=== PATIENT | male | born 1930 | race Caucasian/White ===

== ENCOUNTER 2016-09-17 21:02 | Emergency (ER) | payer MEDICARE, BC ==
[2016-09-17 22:02] LABS: Hematocrit 32 % (42-52); Hemoglobin 10.4 g/dl (14.0-18.0); Mean Corpuscular HGB Conc 33 g/dl (31-36); Mean Corpuscular Hemoglobin 29 pg (27-31); Mean Corpuscular Volume 88 fL (80-94); Mean Platelet Volume 9 um3 (7.4-10.4); Red Blood Count 3.64 10^6/ul (4.0-5.4); Red Cell Distribution Width 15 % (10.5-15); White Blood Count 10.8 10^3/ul (3.5-10.8)
[2016-09-17 22:17] LABS: Albumin 3.4 g/dL (3.2-5.2); BUN/Creatinine Ratio 16.7 (8-20); Calcium 8.8 mg/dL (8.6-10.3); EGFR African American 30.5 (>60); EGFR Non-African American 23.7 (>60); Globulin 2.7 g/dL (2-4); Potassium 3.9 mmol/L (3.5-5.0); Total Bilirubin 0.4 mg/dL (0.2-1.0); Total Protein 6.1 g/dL (6.4-8.9)
--- NOTE | 2016-09-17 22:23 | ED ---
Marleny Degroot Alok, scribed for Nahum Mustafa MD on 09/17/16 at 2150 . Complex/Multi-Sys Presentation - HPI Summary HPI Summary: 85 y/o male presents to the ED after accidentally ingesting six 50 mg tablets of hydralazine at once earlier today. Pt states that he normally takes hydralazine TID but his pills were disorganized at time of ingestion. Pt currently has no medical complaints at this time. - History Of Current Complaint Chief Complaint: EDOverdose Time Seen by Provider: 09/17/16 21:34 Hx Obtained From: Patient Onset/Duration: Gradual Onset, Lasting Hours, Still Present Timing: Constant Severity Currently: Moderate Severity Initially: Moderate - Allergies/Home Medications Allergies/Adverse Reactions: Allergies Allergy/AdvReac Type Severity Reaction Status Date / Time No Known Allergies Allergy Verified 09/17/16 21:44 PMH/Surg Hx/FS Hx/Imm Hx Endocrine/Hematology History: Reports: Hx Diabetes - type 2 Cardiovascular History: Reports: Hx Coronary Artery Disease, Hx Hypertension Respiratory History: Reports: Hx Chronic Obstructive Pulmonary Disease (COPD) GI History: Reports: Hx Gastroesophageal Reflux Disease Sensory History: Reports: Hx Contacts or Glasses - for reading, has glass here. Denies: Hx Hearing Aid Opthamlomology History: Reports: Hx Contacts or Glasses - for reading, has glass here. - Surgical History Surgery Procedure, Year, and Place: Appy, Hx Anesthesia Reactions: No Infectious Disease History: No Infectious Disease History: Denies: Traveled Outside the [place] in Last 30 Days - Family History Known Family History: Negative: Cardiac Disease, Diabetes - Social History Occupation: Retired Lives: With Family - Alcohol Use: unknown Substance Use Type: Reports: None Smoking Status (MU): Never Smoked Tobacco Review of Systems Negative: Fever Psychological: Normal All Other Systems Reviewed And Are Negative: Yes Physical Exam Triage Information Reviewed: Yes Vital Signs On Initial Exam: Initial Vitals Temp Pulse Resp BP Pulse Ox 96.8 F 73 18 153/58 96 09/17/16 21:06 09/17/16 21:06 09/17/16 21:06 09/17/16 21:06 09/17/16 21:06 Vital Signs Reviewed: Yes Appearance: Positive: Well-Appearing, No Pain Distress Skin: Positive: Warm Head/Face: Positive: Normal Head/Face Inspection Eyes: Positive: EOMI, JAY ENT: Positive: Hearing grossly normal Neck: Positive: Supple Respiratory/Lung Sounds: Positive: Clear to Auscultation, Breath Sounds Present Cardiovascular: Positive: RRR Abdomen Description: Positive: Nontender, Soft Musculoskeletal: Positive: Strength/ROM Intact Neurological: Positive: Sensory/Motor Intact, Alert, Oriented to Person Place, Time Psychiatric: Positive: Affect/Mood Appropriate Diagnostics - Vital Signs Vital Signs Temp Pulse Resp BP Pulse Ox 09/17/16 21:40 98.0 F 61 16 175/62 94 09/17/16 21:06 96.8 F 73 18 153/58 96 - Laboratory Lab Results: Lab Results 09/17/16 09/17/16 Range/Units 21:51 21:51 WBC 10.8 (3.5-10.8) 10^3/ul RBC 3.64 L (4.0-5.4) 10^6/ul Hgb 10.4 L (14.0-18.0) g/dl Hct 32 L (42-52) % MCV 88 (80-94) fL MCH 29 (27-31) pg MCHC 33 (31-36) g/dl RDW 15 (10.5-15) % Plt Count 217 (150-450) 10^3/ul MPV 9 (7.4-10.4) um3 Neut % (Auto) 68.3 (38-83) % Lymph % (Auto) 19.0 L (25-47) % Stephens % (Auto) 9.4 H (1-9) % Eos % (Auto) 2.7 (0-6) % Baso % (Auto) 0.6 (0-2) % Absolute Neuts (auto) 7.4 (1.5-7.7) 10^3/ul Absolute Lymphs (auto) 2.1 (1.0-4.8) 10^3/ul Absolute Monos (auto) 1.0 H (0-0.8) 10^3/ul Absolute Eos (auto) 0.3 (0-0.6) 10^3/ul Absolute Basos (auto) 0.1 (0-0.2) 10^3/ul Absolute Nucleated RBC 0 10^3/ul Nucleated RBC % 0 Sodium 137 (133-145) mmol/L Potassium 3.9 (3.5-5.0) mmol/L Chloride 103 (101-111) mmol/L Carbon Dioxide 26 (22-32) mmol/L Anion Gap 8 (2-11) mmol/L BUN 43 H (6-24) mg/dL Creatinine 2.58 H (0.67-1.17) mg/dL Est GFR ( Amer) 30.5 (>60) Est GFR (Non-Af Amer) 23.7 (>60) BUN/Creatinine Ratio 16.7 (8-20) Glucose 311 H (70-100) mg/dL Calcium 8.8 (8.6-10.3) mg/dL Total Bilirubin 0.40 (0.2-1.0) mg/dL AST 17 (13-39) U/L ALT 11 (7-52) U/L Alkaline Phosphatase 66 (34-104) U/L Total Protein 6.1 L (6.4-8.9) g/dL Albumin 3.4 (3.2-5.2) g/dL Globulin 2.7 (2-4) g/dL Albumin/Globulin Ratio 1.3 (1-3) Result Diagrams: 09/17/16 21:51 09/17/16 21:51 Lab Statement: Any lab studies that have been ordered have been reviewed, and results considered in the medical decision making process. - EKG 2156 Cardiac Rate: NL EKG Rhythm: Sinus Rhythm - 61 bpm EKG Interpretation: LBBB Re-Evaluation - Re-Evaluation First Eval Re-Evaluation Time: 01:04 Change: Improved Complex Multi-Symp Course/Dx - Diagnoses Provider Diagnoses: Overdose of antihypertensive agent Discharge - Discharge Plan Condition: Stable Disposition: HOME Patient Education Materials: Adult Overdose (ED) Referrals: Flaco Motley MD [Primary Care Provider] - The documentation as recorded by the Marleny martinez Alok accurately reflects the service I personally performed and the decisions made by , Nahum Mustafa MD.
[2016-09-18 01:12] VITALS: BP 161/69
== END 2016-09-18 01:23 | disposition home or self-care (01) ==
LOC: ED 21:02
DX: T46.5X1A Poisoning by other antihypertensive drugs, accidental (unintentional), initial encounter (principal); Y92.89 Other specified places as the place of occurrence of the external cause
CPT/HCPCS: 36415; 80053; 85025; 93005; 99284

== ENCOUNTER 2018-02-05 23:13 | Emergency (ER) | payer MEDICARE, BC ==
[2018-02-05 23:51] LABS: Urine Appearance Cloudy; Urine Blood 1+ (Negative); Urine Color Yellow; Urine Ketones Negative (Negative); Urine Protein 2+(100 mg/dL) (Negative); Urine Red Blood Cell 3+(>10/hpf) (Absent); Urine Urobilinogen Negative (Negative); Urine White Blood Cell 3+(>20/hpf) (Absent)
--- NOTE | 2018-02-06 00:50 | ED ---
GI/ HPI - HPI Summary HPI Summary: This is Jimmy martinez Bowers documenting for attending physician Yadira Atwood MD. This patient is a 87 year old M presenting to [facility] accompanied by his family with a chief complaint of urinary retention that began today. The patient rates the pain 8/10 in severity. Patient reports pain, dysuria, and frequency. Pt states he can only pass were small amount of urine. Pt just had his catheter removed today that was in place for 10 days. It was placed for urinary retention due to a bladder infection, he saw urology today and that is who removed the cath. He just finished his course of Keflex. - History of Current Complaint Chief Complaint: EDUrogenitalProblems Time Seen by Provider: 02/06/18 00:30 Stated Complaint: UNABLE TO URINATE Hx Obtained From: Patient Onset/Duration: Started Days Ago - 1, Still Present Timing: Constant Severity: Moderate Current Severity: Severe Pain Intensity: 8 Location of Pain: Suprapubic Associated Signs and Symptoms: Positive: Other: - pain, dysuria, and frequency. - Additional Pertinent History Primary Care Physician: [id number] - Allergy/Home Medications Allergies/Adverse Reactions: Allergies Allergy/AdvReac Type Severity Reaction Status Date / Time No Known Allergies Allergy Verified 02/05/18 23:17 PMH/Surg Hx/FS Hx/Imm Hx Endocrine/Hematology History: Reports: Hx Diabetes - type 2 Cardiovascular History: Reports: Hx Coronary Artery Disease, Hx Hypertension Respiratory History: Reports: Hx Chronic Obstructive Pulmonary Disease (COPD) GI History: Reports: Hx Gastroesophageal Reflux Disease History: Reports: Hx Benign Prostatic Hyperplasia Sensory History: Reports: Hx Contacts or Glasses - for reading, has glass here. Denies: Hx Hearing Aid Opthamlomology History: Reports: Hx Contacts or Glasses - for reading, has glass here. - Surgical History Surgery Procedure, Year, and Place: Appy, Hx Anesthesia Reactions: No - Immunization History Date of Tetanus Vaccine: unk Date of Influenza Vaccine: unk Infectious Disease History: No Infectious Disease History: Denies: Traveled Outside the [place] in Last 30 Days - Family History Known Family History: Negative: Cardiac Disease, Diabetes - Social History Lives: With Family Alcohol Use: unknown Substance Use Type: Reports: None Smoking Status (MU): Never Smoked Tobacco Review of Systems Negative: Fever Positive: dysuria, frequency, urgency All Other Systems Reviewed And Are Negative: Yes Physical Exam - Summary Physical Exam Summary: VITAL SIGNS: Reviewed. GENERAL: Patient is a well-developed and nourished male who is lying comfortable in the stretcher. Patient is not in any acute respiratory distress. HEAD AND FACE: No signs of trauma. No ecchymosis, hematomas or skull depressions. No sinus tenderness. EYES: PERRLA, EOMI x 2, No injected conjunctiva, no nystagmus. EARS: Hearing grossly intact. Ear canals and tympanic membranes are within normal limits. MOUTH: Oropharynx within normal limits. NECK: Supple, trachea is midline, no adenopathy, no JVD, no carotid bruit, no c- spine tenderness, neck with full ROM. CHEST: Symmetric, no tenderness at palpation LUNGS: Clear to auscultation bilaterally. No wheezing or crackles. CVS: Regular rate and rhythm, S1 and S2 present, no murmurs or gallops appreciated. ABDOMEN: suprapubic tenderness and fullness. No rebound no guarding, and no masses palpated. Bowel sounds are normal. EXTREMITIES: FROM in all major joints, no edema, no cyanosis or clubbing. NEURO: Alert and oriented x 3. No acute neurological deficits. Speech is normal and follows commands. SKIN: Dry and warm Bladder scan showed 300 cc of urine Triage Information Reviewed: Yes Vital Signs On Initial Exam: Initial Vitals Temp Pulse Resp BP Pulse Ox 98.4 F 100 20 135/93 98 02/05/18 23:15 02/05/18 23:15 02/05/18 23:15 02/05/18 23:15 02/05/18 23:15 Vital Signs Reviewed: Yes Diagnostics - Vital Signs Vital Signs Temp Pulse Resp BP Pulse Ox 02/05/18 23:15 98.4 F 100 20 135/93 98 - Laboratory Lab Results: Lab Results 02/05/18 Range/Units 23:30 Urine Color Yellow Urine Appearance Cloudy Urine pH 6.0 (5-9) Ur Specific [place] 1.010 (1.010-1.030) Urine Protein 2+(100 mg/dl) A (Negative) Urine Ketones Negative (Negative) Urine Blood 1+ A (Negative) Urine Nitrate Negative (Negative) Urine Bilirubin Negative (Negative) Urine Urobilinogen Negative (Negative) Ur Leukocyte Esterase 3+ A (Negative) Urine WBC (Auto) 3+(>20/hpf) A (Absent) Urine RBC (Auto) 3+(>10/hpf) A (Absent) Ur Squamous Epith Cells Present A (Absent) Urine Bacteria Absent (Absent) Hyaline Casts Present A (Absent) Urine Glucose Negative (Negative) Lab Statement: Any lab studies that have been ordered have been reviewed, and results considered in the medical decision making process. Re-Evaluation - Re-Evaluation First Eval Re-Evaluation Time: 01:06 Change: Improved Comment: 16 Norwegian wolfe was placed by the nurse. There was cloudy urine coming out he feels more comfortable. GIGU Course/Dx - Course Assessment/Plan: This patient is a 87 year old M presenting to [facility] accompanied by his family with a chief complaint of urinary retention that began today. The patient rates the pain 8/10 in severity. Patient reports pain, dysuria, and frequency. Pt states he can only pass were small amount of urine. Pt just had his catheter removed today that was in place for 10 days. It was placed for urinary retention due to a bladder infection, he saw urology today and that is who removed the cath. He just finished his course of Keflex. UA showed UTI. Cath was placed in the ED. In the ED course the patient was given levaquin. Patient will be discharged with prescription for levquin and follow up from PCP. The patient is agreeable with this plan. - Diagnoses Provider Diagnoses: Urinary retention, UTI (urinary tract infection) Discharge - Sign-Out/Discharge Documenting (check all that apply): Patient Departure - Discharge Plan Condition: Stable Disposition: HOME Prescriptions: Levofloxacin TAB* [Levaquin TAB*] 500 mg PO DAILY #7 tab Patient Education Materials: Urinary Retention in Men (ED), Urinary Tract Infection in Men (DC) Referrals: Flaco Motley MD [Primary Care Provider] - 2 Days Additional Instructions: RETURN TO EMERGENCY DEPARTMENT FOR ANY NEW OR WORSENING SYMPTOMS Attestation Statement Scribe Attestation: This is Jimmy martinez documenting for attending physician Yadira Atwood MD. User Type: Provider with Scribe Provider Attestation: The documentation recorded by the scribe accurately reflects the service I personally performed and the decisions made by me.
[2018-02-06] MEDS ORDERED: Levofloxacin TAB* 500 MG PO ONE (00:51)
[2018-02-06] MEDS ORDERED: Lidocaine 2% JELLY* 6 ML JELLY TOPICAL ONE ×2 (00:57→01:06)
[2018-02-06 02:02] VITALS: BP 134/76
== END 2018-02-06 02:01 | disposition home or self-care (01) ==
LOC: ED 23:13
DX: R33.9 Retention of urine, unspecified (principal); N39.0 Urinary tract infection, site not specified; R30.0 Dysuria
CPT/HCPCS: 81003; 81015; 87086; 99283

== ENCOUNTER 2018-05-23 20:36 | Inpatient (IN) | payer MEDICARE, BC ==
[2018-05-23 23:10] LABS: ABS Basophils 0.1 10^3/ul (0-0.2); ABS Eosinophils 0.3 10^3/ul (0-0.6); ABS Lymphocytes 1.3 10^3/ul (1.0-4.8); ABS Monocytes 1.5 10^3/ul (0-0.8); ABS Neutrophils 5.8 10^3/ul (1.5-7.7); ABS Nucleated RBC 0 10^3/ul; Eosinophil % 3.2 %; Hematocrit 38 % (42-52); Hemoglobin 12.4 g/dl (14.0-18.0); Lymphocyte % 14.5 %; Mean Corpuscular HGB Conc 33 g/dl (31-36); Mean Corpuscular Hemoglobin 27 pg (27-31); Mean Corpuscular Volume 83 fL (80-94); Mean Platelet Volume 8.3 fL (7.4-10.4); Nucleated Red Blood Cells % 0; Platelet Count 240 10^3/ul (150-450); Red Blood Count 4.58 10^6/ul (4.00-5.40); Red Cell Distribution Width 15 % (10.5-15); White Blood Count 8.9 10^3/ul (3.5-10.8)
[2018-05-23 23:19] LABS: INR 1.02 (0.77-1.02)
[2018-05-23 23:29] LABS: EGFR Non-African American 13.6 (>60)
--- NOTE | 2018-05-23 23:31 | ED ---
GI/ HPI - HPI Summary HPI Summary: The pt is a 87 y.o male presenting to the [facility] accompanied by family members with a chief complaint of Lower abd pain. The pt states that he has sever pain over the suprapubic region of the abd. The pain is described as intermittent. The patient's urine is also described and yellow and "milky" by his family members. The symptoms have been present since the patient's catheter has been in place. Pt denies fever, and chest pain. PMHx includes DM and COPD. The symptoms are aggravated by nothing and alleviated by nothing. - History of Current Complaint Chief Complaint: EDUrogenitalProblems Time Seen by Provider: 05/23/18 22:22 Stated Complaint: CATHER ISSUE Hx Obtained From: Patient Onset/Duration: Started Weeks Ago Pain Intensity: 8 Location of Pain: Suprapubic Aggravating Factor(s): Nothing Alleviating Factor(s): Nothing - Additional Pertinent History Primary Care Physician: [id number] - Allergy/Home Medications Allergies/Adverse Reactions: Allergies Allergy/AdvReac Type Severity Reaction Status Date / Time No Known Allergies Allergy Verified 05/23/18 20:40 PMH/Surg Hx/FS Hx/Imm Hx Endocrine/Hematology History: Reports: Hx Diabetes - type 2 Cardiovascular History: Reports: Hx Coronary Artery Disease, Hx Hypertension Respiratory History: Reports: Hx Chronic Obstructive Pulmonary Disease (COPD) GI History: Reports: Hx Gastroesophageal Reflux Disease History: Reports: Hx Benign Prostatic Hyperplasia Sensory History: Reports: Hx Contacts or Glasses - for reading, has glass here. Denies: Hx Hearing Aid Opthamlomology History: Reports: Hx Contacts or Glasses - for reading, has glass here. - Surgical History Surgery Procedure, Year, and Place: Appy, Hx Anesthesia Reactions: No - Immunization History Date of Tetanus Vaccine: unk Date of Influenza Vaccine: unk Infectious Disease History: No Infectious Disease History: Denies: Traveled Outside the [place] in Last 30 Days - Family History Known Family History: Negative: Cardiac Disease, Diabetes - Social History Alcohol Use: unknown Substance Use Type: Reports: None Smoking Status (MU): Never Smoked Tobacco Review of Systems Negative: Fever Eyes: Negative ENT: Negative Negative: Chest Pain Respiratory: Negative Positive: Abdominal Pain - suprapubic abd pain Genitourinary: Other - Urine described as "milky" Musculoskeletal: Negative Skin: Negative Neurological: Negative Psychological: Normal All Other Systems Reviewed And Are Negative: Yes Physical Exam - Summary Physical Exam Summary: GENERAL: Patient is a well-developed and nourished Male who is lying comfortable in the stretcher. Patient is not in any acute respiratory distress. HEAD AND FACE: Normocephalic EYES: PERRLA, EOMI x 2. EARS: Hearing grossly intact. MOUTH: Oropharynx within normal limits. NECK: Supple, trachea is midline, no adenopathy, no JVD, no carotid bruit. CHEST: Symmetric, no tenderness at palpation LUNGS: Clear to auscultation bilaterally. No wheezing or crackles. CVS: Regular rate and rhythm, S1 and S2 present, no murmurs or gallops appreciated. ABDOMEN: Tenderness to palpation in the suprapubic area EXTREMITIES: Full ROM in all major joints, no edema, no cyanosis or clubbing. NEURO: Alert and oriented x 3. No acute neurological deficits. Speech is normal and follows commands. SKIN: Dry and warm Triage Information Reviewed: Yes Vital Signs On Initial Exam: Initial Vitals Temp Pulse Resp BP Pulse Ox 97.4 F 60 16 121/58 96 05/23/18 20:39 05/23/18 20:39 05/23/18 20:39 05/23/18 20:39 05/23/18 20:39 Vital Signs Reviewed: Yes Diagnostics - Vital Signs Vital Signs Temp Pulse Resp BP Pulse Ox 05/23/18 20:39 97.4 F 60 16 121/58 96 - Laboratory Lab Results: Lab Results 05/23/18 05/23/18 Range/Units 23:02 23:02 WBC 8.9 (3.5-10.8) 10^3/ul RBC 4.58 (4.00-5.40) 10^6/ul Hgb 12.4 L (14.0-18.0) g/dl Hct 38 L (42-52) % MCV 83 (80-94) fL MCH 27 (27-31) pg MCHC 33 (31-36) g/dl RDW 15 (10.5-15) % Plt Count 240 (150-450) 10^3/ul MPV 8.3 (7.4-10.4) fL Neut % (Auto) 64.9 % Lymph % (Auto) 14.5 % [place] % (Auto) 16.6 % Eos % (Auto) 3.2 % Baso % (Auto) 0.8 % Absolute Neuts (auto) 5.8 (1.5-7.7) 10^3/ul Absolute Lymphs (auto) 1.3 (1.0-4.8) 10^3/ul Absolute Monos (auto) 1.5 H (0-0.8) 10^3/ul Absolute Eos (auto) 0.3 (0-0.6) 10^3/ul Absolute Basos (auto) 0.1 (0-0.2) 10^3/ul Absolute Nucleated RBC 0 10^3/ul Nucleated RBC % 0 INR (Anticoag Therapy) 1.02 (0.77-1.02) APTT 32.4 (26.0-36.3) seconds Result Diagrams: 05/23/18 23:02 05/23/18 23:02 Lab Statement: Any lab studies that have been ordered have been reviewed, and results considered in the medical decision making process. - CT CT A/P CT Interpretation Completed By: Radiologist Summary of CT Findings: CT A/P reveals as per radiologist 1. Findings suggest cystitis with left ureteral and renal collecting system gas. likely from indwelling Wolfe catheter and less likely pyonephrosis. 2. Mild posterior lower lobe fibrosis. 3. Distal colonic diverticulosis. 4. Severe prostatomegaly. The ED Physician has reviewed this radiology report. GIGU Course/Dx - Course Course Of Treatment: The pt is a 87 y.o male presenting to the [facility] with a chief complaint of lower abd pain. He recieved a CT A/P in the [facility] which shows cystitis with air tracking up the left renal system is likely consistent with pyelonephritis. Patient's wolfe was changed by nurse and was found to be in retention with output of over 700cc. We discussed patient care with Dr. Santiago at 0148 and she accepted patient care. The patient will be admitted to the [facility]. - Diagnoses Provider Diagnoses: Pyelonephritis - Physician Notifications Discussed Care Of Patient With: Morenita Santiago - Patient Care Time Discussed With Above Provider: 01:47 Instructed by Provider To: Admit As Observation Discharge - Sign-Out/Discharge Documenting (check all that apply): Patient Departure - Admitted to the [facility] - Discharge Plan Condition: Stable Disposition: ADMITTED TO [facility] - Billing Disposition and Condition Condition: STABLE Disposition: Admitted to [facility] - Attestation Statements Document Initiated by Scribe: Yes Documenting Scribe: Rizwan Cabral Provider For Whom Bert is Documenting (Include Credential): Dr. Mehran Flanagan Scribloren Attestation: Rizwan Degroot, scribed for Dr. Mehran Flanagan on 05/24/18 at 0604. Scribe Documentation Reviewed: Yes Provider Attestation: The documentation as recorded by the avaibRizwan pimentel accurately reflects the service I personally performed and the decisions made by , Dr. Mehran Flanagan Status of Scribe Document: Viewed
[2018-05-24] MEDS ORDERED: cefTRIAXone(*) 1 GM in NS 0.9% 50 ML* 50 ML IVPB ONE (00:17)
[2018-05-24 00:27] LABS: Urine Appearance Turbid; Urine Blood 3+ (Negative); Urine Color Yellow; Urine Ketones Negative (Negative); Urine Protein 2+(100 mg/dL) (Negative); Urine Red Blood Cell Absent (Absent); Urine Specific Gravity 1.011 (1.010-1.030); Urine Urobilinogen Negative (Negative); Urine White Blood Cell 3+(>20/hpf) (Absent)
[2018-05-24] MEDS ORDERED: NS 0.9% 1000 ML* 1,000 ML IV SCH (03:15)
[2018-05-24] MEDS ORDERED: Dextrose 50% Syringe 50 ML* 25 GM/50 ML SYRINGE IV PUSH PRN (03:29)
[2018-05-24] MEDS ORDERED: Insulin GLARGINE(*) 1 UNITS UNIT SUBCUT SCH (04:00)
[2018-05-24] MEDS: Heparin VIAL(*) 5000 UNITS/ML VIAL (FIVE THOUSAND) SUBCUT SCH ×3 (04:39→20:50)
--- NOTE | 2018-05-24 07:28 | HP ---
CC: Dr. Motley.* HISTORY AND PHYSICAL: DATE OF ADMISSION: 05/24/18 PRIMARY CARE PROVIDER: Dr. Motley. UROLOGIST: Dr. Naylor in [place], [place]. CHIEF COMPLAINT: Abdominal pain. HISTORY OF PRESENT ILLNESS: Mr. Sims is an 87-year-old male, who has a history of atrial fibrillation, coronary artery disease , COPD, hypertension, type 2 diabetes, and chronic urinary retention with a chronic indwelling Julio catheter, who presented to the emergency room with complaints of lower abdominal pain. The patient states he had essentially been in his usual stated health up until the day prior to admission when he began having episodes of severe cramping lower abdominal/pelvic pain. This was quite severe and because of this he presented to the emergency room for evaluation. In the ER, he was noted to have a Julio catheter that had a very foul appearing urine in it. The Julio catheter was changed and in doing so, a blood clot was found within the catheter tubing. With the new catheter inserted approximately 700 mL of foul appearing urine was drained from the bladder. Now, the urine has been relatively clear, but bloody. The patient states that he no longer has any abdominal pain. He denies any fevers or chills over the last 24 hours. PAST MEDICAL HISTORY: 1. Atrial fibrillation. 2. Coronary artery disease. 3. COPD. 4. Hypertension. 5. Type 2 diabetes. 6. Hyperlipidemia. 7. GERD. 8. History of cardiac arrest in 2016. PAST SURGICAL HISTORY: 1. Bilateral cataract extractions. 2. Appendectomy. MEDICATIONS: Generally are unknown, but according to the outpatient pharmacy records: 1. Amlodipine 10 mg p.o. daily. 2. Torsemide 20 mg p.o. daily. 3. Januvia 100 mg p.o. daily. 4. Lantus 32 units subcutaneous twice daily. 5. Crestor 40 mg p.o. daily. 6. Flomax 0.4 mg p.o. daily. The patient's will need to be contacted later this morning to review his home medications, as this is not a complete list. ALLERGIES: No known drug allergies. FAMILY HISTORY: Mom in her 60s. She had lung disease. Reportedly, she was a heavy smoker. Dad in his late 60s of coronary disease. SOCIAL HISTORY: The patient is a former smoker. He quit in 1994. He was smoking 5 packs a day at the time he quit. He drinks alcohol rarely. 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 He is . He has 5 children. He indicates that his , Ivon, is his healthcare proxy. REVIEW OF SYSTEMS: A complete 11-system review of systems is obtained. Pertinent positives and negatives are as per HPI. In addition, the patient does complain of generalized weakness, which is a chronic issue and the rest of the review of systems is negative. PHYSICAL EXAMINATION GENERAL: The patient is a well-developed elderly male, seen lying flat in the stretcher, in no acute distress. VITAL SIGNS: Blood pressure 112/57, pulse 64, respirations 12, temp 97.4, O2 sat 95% on room air. HEENT: Pupils are round. Extraocular muscles are intact. Oropharynx is clear. Oral mucosa is slightly dry. There is no submandibular, cervical or supraclavicular adenopathy. Thyroid is not enlarged. No thyroid nodules are noted. PULMONARY: Lungs are clear, but breath sounds are markedly diminished throughout. CARDIAC: Normal S1, S2. Regular rate and rhythm. I do not appreciate any murmurs. There is no lower extremity edema. ABDOMEN: Bowel sounds present. Abdomen is soft, nontender, and nondistended. MUSCULOSKELETAL: There is no cyanosis or clubbing of the digits. There is full active range of motion of all 4 extremities. SKIN: Warm and dry. There are no rashes. NEUROLOGIC: Cranial nerves II through XII are grossly intact. Sensation is intact to light touch throughout. Strength is 5/5 and symmetric in both upper and lower extremities bilaterally. PSYCH: The patient is alert. He is hard of hearing. He may be minimally confused, though his daughter states that he generally will be confused at this hour of the day. DIAGNOSTIC STUDIES/LAB DATA: Labs: WBC 8.9, hemoglobin 12.4, hematocrit 38, platelets 240. INR 1.02. Sodium 135, potassium 3.7, chloride 101, CO2 of 24, BUN 56, creatinine 4.17, glucose 118, lactic acid 0.9, calcium 8.7. Bilirubin 0.6, AST 15, ALT 9, alk phos 80. CRP 49.33. BNP 200. Albumin 3.1. Procalcitonin 4.5. Urinalysis reveals turbid urine with specific gravity of 1.011, 2+ protein, 3+ blood, negative nitrites, 3+ leukocyte esterase, 3+ wbc's, 2+ bacteria. CT abdomen and pelvis reveals findings suggestive of cystitis with left ureteral and renal collecting system gas likely from indwelling Julio catheter and less likely pyonephrosis. Mild posterior lower lobe fibrosis is noted. Distal colonic diverticulosis is noted. Severe prostatomegaly is noted. ASSESSMENT AND PLAN: Mr. Sims is an 87-year-old male, who appears to have a clogged urinary catheter, who presented to the emergency room with complaints of severe crampy abdominal pain and was found to have [id number] urinary retention related to the clogged catheter with evidence also of urinary tract infection. 1. [id number] urinary retention. This is resolved after changing out the Julio catheter. The patient is adequately draining urine at this point, though it is bloody. We will need to monitor for formation of clots and a clot obstructing the catheter drainage. I suspect the blood that is currently coming out is related to the cystitis and perhaps even the stretch of the bladder from the catheter being plugged. 2. Urinary tract infection. The patient is not septic at this point. He does have an elevated procalcitonin, which likely is secondary to him having a urinary tract infection; however, he is not febrile. He does not have an elevated white blood cell count nor does he have an elevated lactic acidosis. At this point, the patient will be treated with ceftriaxone 1 g IV q.24 hours. We will await the urine culture and sensitivity. He has no back pain to suggest pyelonephritis, though we will monitor for symptoms of this given the air seen in the left ureter and renal collecting system. 3. History of atrial fibrillation. At this point, the patient sounded to be regular on exam. His medications are generally unknown. We will need to have the patient's bring in his medication list. For now, we will monitor. 4. Coronary artery disease. The patient is without any complaints of chest pain. We will get his home medication list and resume his usual meds. 5. Chronic obstructive pulmonary disease. There are no signs of exacerbation at this point. He does have markedly decreased breath sounds throughout, however. 6. Type 2 diabetes. The patient, based on outpatient records, takes Lantus and Januvia for his diabetes. It is unclear he is on any other diabetic medications, as his whole list is unknown. I will continue his Lantus and add a lispro sliding scale. 7. DVT prophylaxis. According to the Adult Thrombosis Prophylaxis Risk Factor Assessment Guide, the patient has a total risk factor score of 4, making him high risk. He will be placed on heparin 5000 units subcutaneous q.8 hours. 8. Code status is full. TIME SPENT: Sixty five minutes was spent admitting this patient. [id number]/[facility] #: [id number] CHELLY
[2018-05-24] MEDS: Insulin LISPRO* 1 UNITS UNIT SUBCUT SCH ×4 (08:01→20:49)
[2018-05-24] MEDS: CMC: Rosuvastatin (NF) 20 MG TAB PO SCH (10:22)
[2018-05-24] MEDS: Tamsulosin CAP* 0.4 MG PO SCH (10:22)
[2018-05-24] MEDS: amLODIPine TAB* 5 MG PO SCH (10:22)
[2018-05-24] MEDS: cloNIDine TAB* 0.1 MG PO SCH (10:23)
--- NOTE | 2018-05-24 15:04 | PN ---
Subjective Date of Service: 05/24/18 Interval History: Patient is confused at his baseline per family. Patient denies F/C, N/V, abdominal pain, diarrhea, CP, SOB, dizziness, or other pain. In discussing with patient's , he has a follow up appointment soon with Nephrology, Urology and his PCP and is scheduled for a cystoscopy. Family History: Unchanged from Admission Social History: Unchanged from Admission Past Medical History: Unchanged from Admission Objective Active Medications: Amlodipine Besylate (Norvasc Tab*) 10 mg PO DAILY [facility] Last Admin: 05/24/18 10:22 Dose: 10 mg Clonidine HCl (Catapres Tab*) 0.1 mg PO DAILY [facility] Last Admin: 05/24/18 10:23 Dose: 0.1 mg Dextrose (D50w Syringe 50 Ml*) 12.5 gm IV PUSH .FOR FS < 60 - SS PRN PRN Reason: FS < 60 Heparin Sodium (Porcine) (Heparin Vial(*)) 5,000 units SUBCUT Q8HR [facility] Last Admin: 05/24/18 13:00 Dose: 5,000 units Ceftriaxone Sodium 1 gm/ (Sodium Chloride) 50 mls @ 200 mls/hr IVPB Q24H [facility] Insulin Glargine (Lantus(*)) 25 units SUBCUT Q12H [facility] Insulin Human Lispro (Humalog*) 0 units SUBCUT ACHS [facility]; Protocol Last Admin: 05/24/18 13:00 Dose: 2 units Rosuvastatin Calcium (Crestor (Nf)) 40 mg PO DAILY [facility] Last Admin: 05/24/18 10:22 Dose: 40 mg Tamsulosin HCl (Flomax Cap*) 0.4 mg PO DAILY [facility] Last Admin: 05/24/18 10:22 Dose: 0.4 mg Vital Signs - 8 hr 05/24/18 11:13 Temperature 98.4 F Pulse Rate 64 Respiratory 16 Rate Blood Pressure 117/54 (mmHg) O2 Sat by Pulse 95 Oximetry Oxygen Devices in Use Now: None Appearance: Patient is an 87yo male who appears stated age and is sitting in the bed in NAD. Eyes: No Scleral Icterus, PERRLA Ears/Nose/Mouth/Throat: NL Teeth, Lips, Gums, Clear Oropharnyx, Mucous Membranes Moist Neck: NL Appearance and Movements; NL JVP, Trachea Midline Respiratory: Symmetrical Chest Expansion and Respiratory Effort, Clear to Auscultation Cardiovascular: NL Sounds; No Murmurs; No JVD, RRR, No Edema Abdominal: NL Sounds; No Tenderness; No Distention, No Hepatosplenomegaly Lymphatic: No Cervical Adenopathy Extremities: No Edema, No Clubbing, Cyanosis Skin: No Rash or Ulcers, No Nodules or Sclerosis Neurological: NL Sensation, NL Muscle Strength and Tone, - - CN II-XII intact. Alert and oriented only to place. Lines/Tubes/Other Access: Clean, Dry and Intact Wolfe - Draining bloody urine. Result Diagrams: 05/23/18 23:02 05/23/18 23:02 Additional Lab and Data: Lab Results Assess/Plan/Problems-Billing Assessment: Patient is an 87yo male with a PMH for Afib, CAD, DM II who presents to the ED with abdominal pain and is found to have a clogged wolfe catheter and likely UTI. Patient is improving with wolfe change and antibiotics. - Patient Problems (1) UTI (urinary tract infection) Current Visit: Yes Status: Acute Comment: - Catheter associated, catheter changed - Possible cause of hematuria causing clot and obstruction - Continue Ceftriaxone and await culture - Predisposed by BPH, follow up with Urology for cystoscopy. (2) Acute kidney failure Current Visit: No Status: Acute Priority: High Comment: - Significantly worsened Cret, likely obstruction - Monitor and give IVF (3) Atrial fibrillation Current Visit: No Status: Acute Priority: Medium Code(s): I48.91 - UNSPECIFIED ATRIAL FIBRILLATION SNOMED Code(s): 38135078 Comment: - Regular rhythm on exam - Continue propranolol - Not on anticoagulation at this time, will not initiate due to hematuria. (4) CAD (coronary artery disease) Current Visit: No Status: Acute Priority: Medium Code(s): I25.10 - ATHSCL HEART DISEASE OF [place] CORONARY ARTERY W/O ANG PCTRS SNOMED Code(s): 18339293 Comment: - Continue ASA and statin. (5) COPD (chronic obstructive pulmonary disease) Current Visit: No Status: Acute Priority: Medium Code(s): J44.9 - CHRONIC OBSTRUCTIVE PULMONARY DISEASE, UNSPECIFIED SNOMED Code(s): 03180387 Comment: - Not in exacerbation - PRN inhalers and home maintenance inhaler when available. (6) Diabetes Current Visit: No Status: Acute Priority: Medium Code(s): E11.9 - TYPE 2 DIABETES MELLITUS WITHOUT COMPLICATIONS SNOMED Code(s): 21846431 Comment: - Continue Lantus at reduced dose with hypoglycemia and SSI. - Initiate standing insulin when able. (7) Hypertension Current Visit: No Status: Acute Priority: Medium Code(s): I10 - ESSENTIAL (PRIMARY) HYPERTENSION SNOMED Code(s): 56864345 Comment: - Normotensive, continue home meds. (8) DVT prophylaxis Current Visit: No Status: Acute Priority: Medium Code(s): JJF4465 - SNOMED Code(s): 638993603 Comment: -HSQ
[2018-05-24] MEDS ORDERED: Polyethylene Glycol 3350* 17 GM PACKET PO PRN (16:24)
[2018-05-24] MEDS ORDERED: Levalbuterol 1.25 mg/3 mL (NF) 1.25 MG/3 ML NEB.SOLN INH PRN (16:24)
[2018-05-24 16:47] LABS: EGFR Non-African American 18.7 (>60)
[2018-05-24] MEDS: Insulin GLARGINE(*) 1 UNITS UNIT SUBCUT SCH (17:49)
[2018-05-24] MEDS: hydrALAZINE TAB* 25 MG PO SCH (20:48)
[2018-05-24] MEDS: cefTRIAXone(*) 1 GM in NS 0.9% 50 ML* 50 ML IVPB SCH (23:43)
[2018-05-25] MEDS: Heparin VIAL(*) 5000 UNITS/ML VIAL (FIVE THOUSAND) SUBCUT SCH ×3 (06:11→23:04)
[2018-05-25 06:59] LABS: ABS Basophils 0.1 10^3/ul (0-0.2); ABS Eosinophils 0.2 10^3/ul (0-0.6); ABS Lymphocytes 1.6 10^3/ul (1.0-4.8); ABS Monocytes 0.9 10^3/ul (0-0.8); ABS Neutrophils 6.3 10^3/ul (1.5-7.7); ABS Nucleated RBC 0 10^3/ul; Eosinophil % 2.6 %; Hematocrit 34 % (42-52); Hemoglobin 11.4 g/dl (14.0-18.0); Lymphocyte % 17.1 %; Mean Corpuscular HGB Conc 34 g/dl (31-36); Mean Corpuscular Hemoglobin 28 pg (27-31); Mean Corpuscular Volume 82 fL (80-94); Mean Platelet Volume 8.6 fL (7.4-10.4); Nucleated Red Blood Cells % 0.1; Platelet Count 215 10^3/ul (150-450); Red Blood Count 4.12 10^6/ul (4.00-5.40); Red Cell Distribution Width 15 % (10.5-15); White Blood Count 9.1 10^3/ul (3.5-10.8)
[2018-05-25 07:19] LABS: EGFR Non-African American 19.8 (>60)
[2018-05-25] MEDS: Insulin LISPRO* 1 UNITS UNIT SUBCUT SCH ×4 (10:27→20:52)
[2018-05-25] MEDS ORDERED: Insulin GLARGINE(*) 1 UNITS UNIT SUBCUT SCH (10:45)
[2018-05-25] MEDS: Ferrous Sulfate TAB* 325 MG PO SCH ×2 (10:46→13:00)
[2018-05-25] MEDS: CMC: Rosuvastatin (NF) 20 MG TAB PO SCH ×2 (10:46→13:00)
[2018-05-25] MEDS: Metoprolol Succinate XL TAB* 25 MG PO SCH ×2 (10:46→13:00)
[2018-05-25] MEDS: Cyanocobalamin TAB* 500 MCG PO SCH ×2 (10:46→13:00)
[2018-05-25] MEDS: Tamsulosin CAP* 0.4 MG PO SCH (10:47)
[2018-05-25] MEDS: hydrALAZINE TAB* 25 MG PO SCH ×4 (10:47→20:51)
[2018-05-25] MEDS: cloNIDine TAB* 0.1 MG PO SCH ×2 (10:47→13:00)
[2018-05-25] MEDS: Omeprazole CAP* 20 MG PO SCH ×2 (10:47→13:00)
[2018-05-25] MEDS: amLODIPine TAB* 5 MG PO SCH ×2 (10:47→13:00)
--- NOTE | 2018-05-25 14:38 | PN ---
Subjective Date of Service: 05/25/18 Interval History: Patient is lethargic this AM, complains of pain behind his right eye but is unable to further elucidate it. Patient denies F/C, N/V, abdominal pain, diarrhea, CP, SOB. Patient remained lethargic throughout the day and has been verbally aggressive with his family and staff. Patient is refusing almost all his medications. Family History: Unchanged from Admission Social History: Unchanged from Admission Past Medical History: Unchanged from Admission Objective Active Medications: Amlodipine Besylate (Norvasc Tab*) 10 mg PO DAILY [facility] Last Admin: 05/25/18 13:00 Dose: 10 mg Clonidine HCl (Catapres Tab*) 0.1 mg PO DAILY [facility] Last Admin: 05/25/18 13:00 Dose: 0.1 mg Cyanocobalamin (Vitamin B12 Tab*) 500 mcg PO DAILY [facility] Last Admin: 05/25/18 13:00 Dose: 500 mcg Dextrose (D50w Syringe 50 Ml*) 12.5 gm IV PUSH .FOR FS < 60 - SS PRN PRN Reason: FS < 60 Ferrous Sulfate (Ferrous Sulfate Tab*) 325 mg PO DAILY [facility] Last Admin: 05/25/18 13:00 Dose: 325 mg Heparin Sodium (Porcine) (Heparin Vial(*)) 5,000 units SUBCUT Q8HR [facility] Last Admin: 05/25/18 06:11 Dose: 5,000 units Hydralazine HCl (Apresoline Tab*) 50 mg PO TID [facility] Last Admin: 05/25/18 14:14 Dose: 50 mg Ceftriaxone Sodium 1 gm/ (Sodium Chloride) 50 mls @ 200 mls/hr IVPB Q24H [facility] Last Admin: 05/24/18 23:43 Dose: 200 mls/hr Insulin Glargine (Lantus(*)) 20 units SUBCUT Q12H [facility] Last Admin: 05/25/18 10:57 Dose: 20 units Insulin Human Lispro (Humalog*) 0 units SUBCUT ACHS [facility]; Protocol Last Admin: 05/25/18 12:37 Dose: Not Given Levalbuterol HCl (Levalbuterol Hcl) 1.25 mg INH TID PRN PRN Reason: SOB/WHEEZING Metoprolol Succinate (Toprol Xl Tab*) 25 mg PO DAILY [facility] Last Admin: 05/25/18 13:00 Dose: 25 mg Omeprazole (Prilosec Cap*) 20 mg PO DAILY [facility] Last Admin: 05/25/18 13:00 Dose: 20 mg Polyethylene Glycol/Electrolytes (Miralax*) 17 gm PO DAILY PRN PRN Reason: CONSTIPATION Rosuvastatin Calcium (Crestor (Nf)) 40 mg PO DAILY [facility] Last Admin: 05/25/18 13:00 Dose: 40 mg Tamsulosin HCl (Flomax Cap*) 0.4 mg PO DAILY [facility] Last Admin: 05/25/18 10:47 Dose: 0.4 mg Vital Signs - 8 hr 05/25/18 07:31 Temperature 98.8 F Pulse Rate 54 Respiratory 15 Rate Blood Pressure 119/57 (mmHg) O2 Sat by Pulse 98 Oximetry Oxygen Devices in Use Now: None Appearance: Patient is an 87yo male who appears stated age and is sitting in the bed in [facility]. Eyes: No Scleral Icterus, PERRLA Ears/Nose/Mouth/Throat: NL Teeth, Lips, Gums, Clear Oropharnyx, Mucous Membranes Moist Neck: NL Appearance and Movements; NL JVP, Trachea Midline Respiratory: Symmetrical Chest Expansion and Respiratory Effort, Clear to Auscultation Cardiovascular: NL Sounds; No Murmurs; No JVD, RRR, No Edema Abdominal: NL Sounds; No Tenderness; No Distention, No Hepatosplenomegaly Lymphatic: No Cervical Adenopathy Extremities: No Edema, No Clubbing, Cyanosis Skin: No Rash or Ulcers, No Nodules or Sclerosis Neurological: NL Sensation, NL Muscle Strength and Tone, - - CN II-XII intact. Alert and oriented only to self. Lines/Tubes/Other Access: Clean, Dry and Intact Naso-enteral Tube Result Diagrams: 05/25/18 06:38 05/25/18 06:38 Additional Lab and Data: Lab Results Microbiology and Other Data: Microbiology 05/23/18 23:56 Urine Culture - Preliminary Urine Klebsiella Oxytoca 05/23/18 23:03 Aerobic Blood Culture - Preliminary Blood Venous No Growth Day 1 Anaerobic Blood Culture - Preliminary No Growth Day 1 05/23/18 23:02 Aerobic Blood Culture - Preliminary Blood Venous No Growth Day 1 Anaerobic Blood Culture - Preliminary No Growth Day 1 Assess/Plan/Problems-Billing Assessment: Patient is an 87yo male with a PMH for Afib, CAD, DM II who presents to the ED with abdominal pain and is found to have a clogged wolfe catheter and likely UTI. Patient is improving with wolfe change and antibiotics. - Patient Problems (1) UTI (urinary tract infection) Current Visit: Yes Status: Acute Comment: - Catheter associated, catheter changed - Possible cause of hematuria causing clot and obstruction - Continue Ceftriaxone and await culture and sensitivities. Klebsiella oxytoca growing >100K colonies. - Predisposed by BPH, follow up with Urology for cystoscopy. (2) Altered mental status Current Visit: Yes Status: Acute Code(s): R41.82 - ALTERED MENTAL STATUS, UNSPECIFIED SNOMED Code(s): 719387393 Comment: - Lethargy, frequent mood swings - Increasing confusion - Headache, unclear if related. CT brain pending - Possibly metabolic encephalopathy vs delirium from hospital, has history of wandering at home and confusion at night - Supportive care, avoid medications that exacerbate delirium. (3) Acute kidney failure Current Visit: No Status: Acute Priority: High Comment: - Significantly worsened Cret, likely obstruction - IVF stopped - Improving to near baseline. - Has outpatient F/U with nephrology. (4) Atrial fibrillation Current Visit: No Status: Acute Priority: Medium Code(s): I48.91 - UNSPECIFIED ATRIAL FIBRILLATION SNOMED Code(s): 15197370 Comment: - Regular rhythm on exam - Continue propranolol - Not on anticoagulation at this time, will not initiate due to hematuria. (5) CAD (coronary artery disease) Current Visit: No Status: Acute Priority: Medium Code(s): I25.10 - ATHSCL HEART DISEASE OF [place] CORONARY ARTERY W/O ANG PCTRS SNOMED Code(s): 64379881 Comment: - Continue ASA and statin. (6) COPD (chronic obstructive pulmonary disease) Current Visit: No Status: Acute Priority: Medium Code(s): J44.9 - CHRONIC OBSTRUCTIVE PULMONARY DISEASE, UNSPECIFIED SNOMED Code(s): 48271436 Comment: - Not in exacerbation - PRN inhalers and home maintenance inhaler when available. (7) Diabetes Current Visit: No Status: Acute Priority: Medium Code(s): E11.9 - TYPE 2 DIABETES MELLITUS WITHOUT COMPLICATIONS SNOMED Code(s): 03532544 Comment: - Stop Glargine due to hypoglycemia and lack or oral intake - SSI only (8) Hypertension Current Visit: No Status: Acute Priority: Medium Code(s): I10 - ESSENTIAL (PRIMARY) HYPERTENSION SNOMED Code(s): 10029339 Comment: - Normotensive, continue home meds. (9) DVT prophylaxis Current Visit: No Status: Acute Priority: Medium Code(s): MFU7775 - SNOMED Code(s): 019449088 Comment: -HSQ Status and Disposition: Inpatient for full evaluation of UTI and AMS.
[2018-05-25] MEDS: Insulin GLARGINE(*) 1 UNITS UNIT SUBCUT SCH (15:14)
[2018-05-25] MEDS ORDERED: Aspirin TAB* 325 MG PO ONE (16:08)
[2018-05-25] MEDS ORDERED: Aspirin TAB* 325 MG ONE (16:27)
[2018-05-25 16:47] LABS: ABS Basophils 0.1 10^3/ul (0-0.2); ABS Eosinophils 0.3 10^3/ul (0-0.6); ABS Lymphocytes 1.5 10^3/ul (1.0-4.8); ABS Monocytes 0.9 10^3/ul (0-0.8); ABS Neutrophils 5.4 10^3/ul (1.5-7.7); ABS Nucleated RBC 0 10^3/ul; Eosinophil % 4.1 %; Hematocrit 34 % (42-52); Hemoglobin 11.1 g/dl (14.0-18.0); Lymphocyte % 18.2 %; Mean Corpuscular HGB Conc 33 g/dl (31-36); Mean Corpuscular Hemoglobin 27 pg (27-31); Mean Corpuscular Volume 84 fL (80-94); Mean Platelet Volume 8.5 fL (7.4-10.4); Nucleated Red Blood Cells % 0.1; Platelet Count 218 10^3/ul (150-450); Red Blood Count 4.06 10^6/ul (4.00-5.40); Red Cell Distribution Width 15 % (10.5-15); White Blood Count 8.2 10^3/ul (3.5-10.8)
[2018-05-25 16:54] LABS: INR 1.02 (0.77-1.02)
[2018-05-25 17:12] LABS: EGFR Non-African American 20.9 (>60)
[2018-05-25] MEDS: Clopidogrel TAB* 75 MG PO SCH (17:39)
--- NOTE | 2018-05-25 23:25 | CONS ---
CC: Dr. Motley; Dr. Naylor * CONSULTATION REPORT: DATE OF CONSULT: 05/25/18 LOCATION: Current location is 408, bed 1. PRIMARY CARE PHYSICIAN: Dr. Motley. UROLOGIST: Dr. Naylor in [place]. REASON FOR CONSULTATION: Worsening confusion, agitation. HISTORY OF PRESENT ILLNESS: Mr. Sims is an 87-year-old gentleman with complicated medical history including diabetes, hypertension, COPD, coronary artery disease, chronic urinary retention with an indwelling Julio catheter, atrial fibrillation, not on anticoagulation who presented to the emergency room on 05/24/18 with lower abdominal pain. He noted that up until that day he was feeling okay, but he started having episodes of cramping. Cramping was severe. He was noted to have foul-smelling urine in his Julio catheter. A blood clot was found within the catheter tubing and a new catheter was inserted with 700 mL of foul appearing urine drain from the bladder. He continued to have bloody urine. There was no report of any fevers or chills over the last 24 hours. It should be noted that the patient has a history of underlying dementia as well as a very poor historian and today would not comply with any of my questions or examination. He was belligerent and agitated. So, my information is gleaned from a chart review. PAST MEDICAL HISTORY: Significant for: 1. Atrial fibrillation. 2. Coronary artery disease. 3. COPD. 4. Hypertension. 5. Type 2 diabetes. 6. Hyperlipidemia. 7. GERD. 8. Cardiac arrest in 2016. 9. Dementia. PAST SURGICAL HISTORY: Includes: 1. Bilateral cataract extraction. 2. Appendectomy. MEDICATIONS: At home include: 1. Amlodipine. 2. Torsemide. 3. Januvia. 4. Lantus. 5. Crestor. 6. Flomax. Medications in the hospital: 1. Norvasc 10 mg p.o. daily. 2. Aspirin 325 mg once this afternoon. 3. Aspirin 81 mg daily. 4. Ceftriaxone. 5. Clonidine 0.1 mg p.o. daily. 6. Plavix 75 mg p.o. daily, started today. 7. Cyanocobalamin. 8. Vitamin B12. 9. Ferrous sulfate. 10. Heparin, DVT prophylaxis. 11. Hydralazine 50 mg p.o. t.i.d. 12. Insulin Humalog. 13. Levalbuterol 1.25 mg inhaler t.i.d. 14. Metoprolol 25 mg p.o. daily. 15. Protonix 40 mg daily. 16. MiraLAX 17 g daily p.r.n. constipation. 17. Crestor 40 mg daily. 18. Flomax 0.4 mg p.o. daily. ALLERGIES: He has no known drug allergies. SOCIAL HISTORY: Lives at home with his . He is a former smoker, quit in 1994. Prior to that, he was smoking 5 packs a day. Rare alcohol use. 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 FAMILY HISTORY: Mom in her 60s with lung cancer. Dad in his late 60s with coronary artery disease. REVIEW OF SYSTEMS: Review of systems in 14-organ systems cannot be completed because of his mental state. PHYSICAL EXAM: Vital Signs: He is afebrile. Temperature of 98.8, pulse rate of 54 to 70, respiratory rate of 15, O2 saturation of 98%, blood pressure 119/ 57 to 159/55. In general, he is a well nourished, well developed gentleman lying in his hospital bed on his side. When I entered the room, he was angry and belligerent, yelled, although I was able to calm him down some. He was not compliant with the examination or the history and was unable to give me any significant information. He is normocephalic, atraumatic. Sclerae appear anicteric. Mucous membranes are slightly dry. Oropharynx is clear. Neck: No carotid bruits appreciated. Chest: Clear to auscultation bilaterally. Cardiovascular: Regular rate and rhythm. No evidence of AFib at this time. Abdomen was protuberant, soft. Extremities: There is no significant cyanosis or edema. On neurologic exam, he is sleeping, but awakens and is angry. He is somewhat somnolent. Oriented to person only. Speech was fluent. No dysarthria. To the extent that I could tell . Cranial nerves: Pupils appear equally round and reactive. His face appears symmetric. His tongue appears midline. Facial sensation was difficult to assess. His hearing appears to be diminished bilaterally. Motor Exam: He is spontaneously moving all extremities but I could not get him to comply with the examination. He appears to be nonfocal. There does not appear to be any drift that I can tell. Sensation was difficult to assess, grossly intact to light touch throughout, again difficult examination. DTRs were down throughout, very difficult to examine, would not relax his legs when asked. Ppfjvy-[id number] and rapid alternating movements cannot be tested. There was no resting tremor appreciated. Gait could not be tested. LABORATORY DATA/DIAGNOSTIC STUDIES: Lab work includes a CBC with diff with a mild anemia, hemoglobin of 11.4, hematocrit of 34. INR 1.02, PTT of 33.4. Chemistry with a BUN of 46, creatinine of 3.1, which is improved from 4.17 on admission, glucose of 53 to 60. Calcium of 8.5. Magnesium of 2.1. Urine showed 2+ bacteria, 3+ white blood cells, 3+ leukocyte esterase, 3+ blood. CT scan, he did have a CT done this afternoon. The radiologists called his primary physician and reported some hypoattenuation in the right frontal and parietal lobe. I have reviewed the films and he has a poor quality study, there does appear to be an area of hypoattenuation in the right frontal lobe. ASSESSMENT AND PLAN: Mr. Sims is an 87-year-old gentleman with multiple medical problems including atrial fibrillation, was previously on Eliquis for short time and developed a nasal hemorrhage and it was stopped. He came in on aspirin, which was subsequently stopped due to the hematuria, but that has since resolved. He has not been monitored on tele at this point, but there has been no reported atrial fibrillation. He has a history of COPD, hypertension, type 2 diabetes, coronary artery disease, chronic urinary retention with a chronic indwelling Julio catheter. He was initially presented to the ER with abdominal pain, found to have a clot in his catheter and a new one was placed and 700 mL of foul-smelling urine was drained. It appears that he has evidence of urinary tract infection as well. He was doing well here over the last day or two, but today, seemed more agitated, aggressive, yelling at staff and there was a marked change in his mental status. Based on that, a CT scan of the head was done, which appears to show some possibility of a subacute infarct in the right frontal and parietal lobes. It was a very poor study. No evidence of hemorrhage is appreciated. Differential diagnosis regarding his altered mental status is broad. It could include underlying infection. He is currently on antibiotics and being treated. Consider sundowning, acute delirium in the hospital. Consider metabolic encephalopathy. His creatinine when he presented was 4.17. It has improved. Certainly, this could be causing some altered mental status as well. No evidence of any pneumonia or other infection, but I will check a chest x-ray. He also has had considerable hypoglycemia. His blood sugars today have been in the low end. Certainly, that could be precipitating some confusion as well. Given his history of multiple risk factors and chronic AFib, on aspirin only with findings on CT scan, stroke is in the differential as well. The plan is to also do a stroke workup including an MRI of the brain, MRA of the head and neck, echocardiogram. I would check fasting lipids add stand as necessary. We have started him on aspirin today and Plavix, which he will need for 30 days. Despite the fact that he has a history of atrial fibrillation and in the setting of stroke, full strength anticoagulation would be recommended. Given the fact that he has significant fall risk and the fact he has a history of prior hemorrhage and recent hematuria, I would not start him on full strength anticoagulation at this time until we have better evidence of the source of his stroke and the size of his stroke. For now, I think aspirin and Plavix is appropriate. Should the MRI show evidence of an acute stroke, I would allow his blood pressure to rise high for the next day or two. Hydrate him. Control his diabetes. He is a nonsmoker at this point. Hopefully, with aggressive medical treatment, his encephalopathy will improve over the day or two. I will continue to follow him and make further recommendations as necessary. Thank you for the opportunity to participate in his care. [id number]/[facility] #: [id number] CHELLY
[2018-05-26] MEDS: cefTRIAXone(*) 1 GM in NS 0.9% 50 ML* 50 ML IVPB SCH (00:26)
[2018-05-26] MEDS: Heparin VIAL(*) 5000 UNITS/ML VIAL (FIVE THOUSAND) SUBCUT SCH ×3 (05:54→21:40)
[2018-05-26 06:20] LABS: EGFR Non-African American 20.8 (>60)
[2018-05-26 06:30] LABS: Hematocrit 42 % (42-52); Hemoglobin 13.5 g/dl (14.0-18.0); Mean Corpuscular HGB Conc 32 g/dl (31-36); Mean Corpuscular Hemoglobin 27 pg (27-31); Mean Corpuscular Volume 85 fL (80-94); Red Blood Count 4.97 10^6/ul (4.00-5.40); Red Cell Distribution Width 16 % (10.5-15); White Blood Count 8.2 10^3/ul (3.5-10.8)
[2018-05-26 07:44] LABS: ABS Basophils 0.1 10^3/ul (0-0.2); ABS Eosinophils 0.3 10^3/ul (0-0.6); ABS Monocytes 0.8 10^3/ul (0-0.8); ABS Nucleated RBC 0 10^3/ul; Eosinophil % 4.2 %; Nucleated Red Blood Cells % 0.1; Platelet Count Platelets clumped. 10^3/ul (150-450)
[2018-05-26] MEDS: Insulin LISPRO* 1 UNITS UNIT SUBCUT SCH ×4 (08:32→21:41)
[2018-05-26] MEDS: Cyanocobalamin TAB* 500 MCG PO SCH (08:36)
[2018-05-26] MEDS: hydrALAZINE TAB* 25 MG PO SCH ×3 (08:36→21:40)
[2018-05-26] MEDS: Tamsulosin CAP* 0.4 MG PO SCH (08:37)
[2018-05-26] MEDS: Clopidogrel TAB* 75 MG PO SCH (08:37)
[2018-05-26] MEDS: Aspirin EC TAB* 81 MG TAB.EC PO SCH (08:37)
[2018-05-26] MEDS: Metoprolol Succinate XL TAB* 25 MG PO SCH (08:37)
[2018-05-26] MEDS: Ferrous Sulfate TAB* 325 MG PO SCH (08:37)
[2018-05-26] MEDS: cloNIDine TAB* 0.1 MG PO SCH (08:37)
[2018-05-26] MEDS: amLODIPine TAB* 5 MG PO SCH (08:37)
[2018-05-26] MEDS: CMC: Rosuvastatin (NF) 20 MG TAB PO SCH (09:11)
[2018-05-26] MEDS: CMCS: Pantoprazole TAB (NF) 40 MG TAB PO SCH (09:11)
--- NOTE | 2018-05-26 16:22 | PN ---
Subjective Date of Service: 05/26/18 Interval History: Patient seen and examined at bedside. Denies fever, chills, shortness of breath , chest discomfort, N/V/D. Refusing Brain MRI earlier today. Discussed case with Dr. King who has encouraged to the patient to have a brain MRI in the AM. Tele: Afib/flutter, rate 60's Family History: Unchanged from Admission Social History: Unchanged from Admission Past Medical History: Unchanged from Admission Objective Active Medications: Amlodipine Besylate (Norvasc Tab*) 10 mg PO DAILY [facility] Aspirin (Aspirin Ec Tab*) 81 mg PO DAILY [facility] Clonidine HCl (Catapres Tab*) 0.1 mg PO DAILY [facility] Clopidogrel Bisulfate (Plavix Tab*) 75 mg PO DAILY [facility] Cyanocobalamin (Vitamin B12 Tab*) 500 mcg PO DAILY [facility] Dextrose (D50w Syringe 50 Ml*) 12.5 gm IV PUSH .FOR FS < 60 - SS PRN Reason: FS < 60 Ferrous Sulfate (Ferrous Sulfate Tab*) 325 mg PO DAILY [facility] Heparin Sodium (Porcine) (Heparin Vial(*)) 5,000 units SUBCUT Q8HR [facility] Hydralazine HCl (Apresoline Tab*) 50 mg PO TID [facility] Ceftriaxone Sodium 1 gm/ (Sodium Chloride) 50 mls @ 200 mls/hr IVPB Q24H [facility] Insulin Human Lispro (Humalog*) 0 units SUBCUT ACHS [facility]; Protocol Levalbuterol HCl (Levalbuterol Hcl) 1.25 mg INH TID PRN Reason: SOB/WHEEZING Metoprolol Succinate (Toprol Xl Tab*) 12.5 mg PO DAILY [facility] Pantoprazole Sodium (Protonix Tab (Nf)) 40 mg PO DAILY [facility] Polyethylene Glycol/Electrolytes (Miralax*) 17 gm PO DAILY PRN Reason: CONSTIPATION Rosuvastatin Calcium (Crestor (Nf)) 40 mg PO DAILY [facility] Tamsulosin HCl (Flomax Cap*) 0.4 mg PO DAILY [facility] Vital Signs - 8 hr 05/26/18 05/26/18 12:11 15:19 Temperature 98.7 F 98.1 F Pulse Rate 62 61 Respiratory 18 16 Rate Blood Pressure 122/61 108/55 (mmHg) O2 Sat by Pulse 97 97 Oximetry Oxygen Devices in Use Now: None Appearance: NAD, laying in bed Ears/Nose/Mouth/Throat: Mucous Membranes Moist Respiratory: Symmetrical Chest Expansion and Respiratory Effort, Clear to Auscultation Cardiovascular: - - Heart raete irregular Abdominal: NL Sounds; No Tenderness; No Distention Extremities: No Edema Skin: No Rash or Ulcers Neurological: NL Muscle Strength and Tone, - - Alert and Oriented to Person and Place Nutrition: Taking PO's Result Diagrams: 05/26/18 05:21 05/26/18 05:21 Additional Lab and Data: Lab Results Microbiology and Other Data: Microbiology 05/23/18 23:56 Urine Culture - Preliminary Urine Klebsiella Oxytoca 05/23/18 23:03 Aerobic Blood Culture - Preliminary Blood Venous No Growth Day 1 Anaerobic Blood Culture - Preliminary No Growth Day 1 05/23/18 23:02 Aerobic Blood Culture - Preliminary Blood Venous No Growth Day 1 Anaerobic Blood Culture - Preliminary No Growth Day 1 Assess/Plan/Problems-Billing Assessment: Mr. Sims is an 87yo male with a PMH significant for Afib, CAD, and DM II who presents to the ED with abdominal pain and was found to have a clogged wolfe catheter and likely UTI. Patient is improving with wolfe change and antibiotics. - Patient Problems (1) CVA (cerebral vascular accident) Code(s): I63.9 - CEREBRAL INFARCTION, UNSPECIFIED SNOMED Code(s): 696550824 Comment: - Brain CT with mulitple subacute CVAs suspect secondary to emboli from Afib - Unable to tolerate an MRI yesterday, will attempt to repeat in the AM - Carotid dopplers completed, but final read pending at this time - Echo pending - Neurology consult, input appreciated - Continue statin, ASA, and plavix (2) UTI (urinary tract infection) Comment: - Catheter associated, catheter changed - Suspect cause of hematuria causing clot and obstruction - Urine culture with Klebsiella oxytoca growing >100K colonies - Continue Ceftriaxone for a 5 day course - Follow up with Urology for cystoscopy outpatient (3) Altered mental status Code(s): R41.82 - ALTERED MENTAL STATUS, UNSPECIFIED SNOMED Code(s): 614013593 Comment: - Lethargy, frequent mood swings and increasing confusion - Headache, unclear if related - CT brain shows multiple subacute CVAs - May also have a component of metabolic encephalopathy vs delirium from hospital, has history of wandering at home and confusion at night - Continue supportive care, avoid medications that exacerbate delirium (4) Acute kidney failure Comment: - Acute on Chronic, improving and now near baseline - Significantly worsened Cret, likely secondary to obstruction on admission - Plan for outpatient F/U with nephrology (5) Atrial fibrillation Code(s): I48.91 - UNSPECIFIED ATRIAL FIBRILLATION SNOMED Code(s): 53390167 Comment: - Irregular on exam today - Continue propranolol - Not anticoagulated at this time, will not initiate due to hematuria (6) CAD (coronary artery disease) Code(s): I25.10 - ATHSCL HEART DISEASE OF [place] CORONARY ARTERY W/O ANG PCTRS SNOMED Code(s): 03670208 Comment: - Denies chest pain - Continue ASA and statin (7) COPD (chronic obstructive pulmonary disease) Code(s): J44.9 - CHRONIC OBSTRUCTIVE PULMONARY DISEASE, UNSPECIFIED SNOMED Code(s): 11536519 Comment: - No signs of acute exacerbation - PRN inhalers and home maintenance inhaler when available (8) Diabetes Code(s): E11.9 - TYPE 2 DIABETES MELLITUS WITHOUT COMPLICATIONS SNOMED Code(s) : 14695134 Comment: - Glucose 56 -170's - HgA1C 8.4 - Glargine discontinued due to hypoglycemia and lack of oral intake - Lispro SSI only (9) Hypertension Code(s): I10 - ESSENTIAL (PRIMARY) HYPERTENSION SNOMED Code(s): 28467805 Comment: - Normotensive, SBP 100-130's - Continue hydralazine, propranolol, amlodipine, and clonidine (10) DVT prophylaxis Code(s): KZQ6980 - SNOMED Code(s): 589885831 Comment: - HSQ (11) Full code status Code(s): Z78.9 - OTHER SPECIFIED HEALTH STATUS SNOMED Code(s): 812195149 Status and Disposition: Inpatient for full evaluation of UTI and AMS. Discharge when medically stable.
[2018-05-27] MEDS: cefTRIAXone(*) 1 GM in NS 0.9% 50 ML* 50 ML IVPB SCH (02:29)
[2018-05-27] MEDS: Heparin VIAL(*) 5000 UNITS/ML VIAL (FIVE THOUSAND) SUBCUT SCH ×3 (06:46→21:30)
--- NOTE | 2018-05-27 07:56 | PN ---
CC: Flaco Motley MD; Dr. Altamirano, Cardiology * PROGRESS NOTE: DATE OF RECORDIN05/26/18 HISTORY: Adama Sims was admitted to the hospital on 05/24/18 with acute onset of abdominal pain with spasms, found to have 700 mL of "foul appearing urine" drained from the catheter after a clot was removed from catheter tubing. He was noted to have changes on CT of his brain raising question of a subacute right frontoparietal stroke in the setting of a history of atrial fibrillation, hypertension, diabetes type 2, hyperlipidemia, COPD, and history of cardiac arrest in 2016. Dr. Peralta saw the patient in consultation and suggested proceeding with further workup with MRI of the brain, MRA of the brain and neck, echocardiogram. For now, Plavix was added to his aspirin. It was noted that he had had bleeding from his nose with Eliquis. It was also noted in the past he had had some hematuria on aspirin. He did not have a complete image of his brain with MRI imaging, as he did not tolerate the scanning. He had only the MRA segment of the brain which showed some decreased signal in the right M1, M2 distribution raising question of thrombus versus attenuation. In looking the film directly, there was some increased signal in the cortical area on the source films raising question of stroke. This was similar to the area questioned on CT. We do not; however, have the matos MRI images to give us further information regarding the size of stroke, distribution of stroke or strokes, if there is any history of previous bleeding with susceptibility weighted images. He is noted to have some memory difficulties, and these may be associated with previous bleeds or microbleeds. All these findings would help us in determining best treatment. Echocardiogram is pending. His total cholesterol was 79 and LDL was 40. When I first went into the room, the patient was adamantly indicating why he would not have an MRI. He did not see how having a MRI was healing. We had extensive discussion during today's visit, and his and son were present. Of note, they did not notice any change in personality just prior to admission. The main reason for coming to the emergency room was the abdominal pain and spasms. He denies any chest pain, chest pressure, palpitations, or shortness of breath. He does have known atrial fibrillation. There has been no recent rashes or fevers other than dry skin. He denies any new change in vision or numbness or weakness of arms or legs. On examination, his most recent temperature was 98.7 degrees measured temporally , his heart rate was 62 and regular, respiratory rate was 18, saturation was 97% , and blood pressure was 122/61. He had no evidence of petechiae. There was slight edema at the ankles. No cord was noted to palpation in the calves. He was awake, alert, expressing frustration but able to talk when time was spent at bedside. His pupils were small at about 2 mm, previous cataract repair with lens implantation was noted. I got slight view of the fundi. He had full extraocular movements with no nystagmus and full harris to confrontation. His facial expression and sensation were symmetric. His palate was upgoing, tongue was midline. Sternocleidomastoid and trapezius were 5/5 in strength. He knew he was at the hospital, he could not give me the name of the town. He did not know the month or year. He did know the president. There was normal bulk and tone, no pronator drift. He gave good strength in his upper and lower extremities with normal [id number] and heel-to- nunez movements. He denied any asymmetries to pinprick or light touch. Reflexes were 2+ and symmetric with the exception at the ankles that were 1+. Toes were flexor response bilaterally. He denied any asymmetry to pinprick, cold, or light touch. Gait was not tested because of his clinical status. MEDICATIONS: Include: 1. Amlodipine 10 mg p.o. daily. 2. Aspirin 81 mg p.o. daily. 3. Ceftriaxone 1 g IV q.24 hours. 4. Clonidine 0.1 mg p.o. daily. 5. Plavix 75 mg p.o. daily. 6. Vitamin B12 of 500 mcg p.o. daily. 7. Dextrose D50W 12.5 g IV push for fingerstick less than 60. 8. Ferrous sulfate 325 mg p.o. daily. 9. Heparin sodium 5000 units subcu q.8 hours. 10. Hydralazine 50 mg p.o. t.i.d. 11. Humalog per order. 12. Levalbuterol 1.25 mg inhaled t.i.d. p.r.n. shortness of breath and wheezing. 13. Toprol XL 12.5 mg p.o. daily. 14. Protonix 40 mg p.o. daily. 15. MiraLAX 17 g p.o. daily p.r.n. constipation. 16. Crestor 40 mg p.o. daily. 17. Flomax 0.4 mg p.o. daily. ALLERGIES: He has no known drug allergies. LABORATORY DATA: Includes CBC where platelets clumped; however, yesterday's platelets were within normal limits. His metabolic panel showed an elevated BUN at 42, creatinine was elevated at 2.88 with estimated GFR of 20.8. His calcium was 8.7, magnesium 2.5. His urine has grown Klebsiella and it is reported to be sensitive to ceftriaxone. Records were reviewed including reviewing the MRA of the head directly, nursing notes, Dr. Peralta's consultation note, the original admission note, CT of the brain images. An 87-year-old gentleman with a history of coronary artery disease, diabetes, hyperlipidemia, hypertension, atrial fibrillation, admitted for abdominal pain and spasms in the setting of UTI with clot and obstruction of the Julio catheter. In his workup, he was found to have findings on CT of the brain and limited MRA of the brain to suggest a subacute right frontoparietal stroke. The images are extremely limited and do not give all information needed for diagnosis and treatment. Accordingly, I spent extensive time at bedside explaining findings and what further imaging would mean as far as benefit to him. For now, Dr. Peralta has added Plavix to his aspirin. Atrial fibrillation is one of his highest risks for stroke, and if there is evidence of multiple embolic strokes, this will give further weight for need for anticoagulation. tells me that Dr. Altamirano has tried to restart the Eliquis, but the patient has refused. If the echocardiogram showed a clot, this would also indicate anticoagulation, and further education could be given. Echocardiogram is pending. I called Radiology to try to get the shortest scan possible with ADC mapped diffusion weighted image, susceptibility weighted image, and FLAIR and we can get it as short as 5 minutes; however, in 10 minutes they can get the full MRI. The patient has agreed to 10 minutes scan tomorrow. I will recheck with him in the morning to confirm that he is ready to proceed and order accordingly. We will try to prioritize the scans needed, and in the best case, if he cannot tolerate the scan, we can at least get 5 minutes. Given he did not get the MRA of the neck, I have asked for carotid Dopplers looking for atherosclerosis as the cause of stroke. He is being treated for this with aspirin and Plavix. Over 60 minutes was spent in direct [id number] patient care, over 50% of the time was spent in education and counseling and further time was spent in putting notes together and further direct communication will be planned with hospitalist team. [id number]/[facility] #: [id number] CHELLY
[2018-05-27] MEDS: Aspirin EC TAB* 81 MG TAB.EC PO SCH (07:59)
[2018-05-27] MEDS: CMCS: Pantoprazole TAB (NF) 40 MG TAB PO SCH (07:59)
[2018-05-27] MEDS: Ferrous Sulfate TAB* 325 MG PO SCH (07:59)
[2018-05-27] MEDS: Cyanocobalamin TAB* 500 MCG PO SCH (07:59)
[2018-05-27] MEDS: hydrALAZINE TAB* 25 MG PO SCH ×3 (07:59→21:29)
[2018-05-27] MEDS: cloNIDine TAB* 0.1 MG PO SCH (07:59)
[2018-05-27] MEDS: Clopidogrel TAB* 75 MG PO SCH (07:59)
[2018-05-27] MEDS: Metoprolol Succinate XL TAB* 25 MG PO SCH (08:00)
[2018-05-27] MEDS: Tamsulosin CAP* 0.4 MG PO SCH (08:00)
[2018-05-27] MEDS: CMC: Rosuvastatin (NF) 20 MG TAB PO SCH (08:00)
[2018-05-27] MEDS: amLODIPine TAB* 5 MG PO SCH (08:00)
[2018-05-27] MEDS: Insulin LISPRO* 1 UNITS UNIT SUBCUT SCH ×4 (08:05→21:30)
--- NOTE | 2018-05-27 08:11 | PN ---
Progress Note - Progress Note Date of Service: 05/27/18 Note: HPI: Overnight, there has been no new concerns. He had a hard time sleeping. He denies change in vision, numbness, weakness, change in coordination, chest pain, palpitation, shortness of breath. Discussed work up and plan for the day, and he again agrees to proceed with MRI brain. Temp Pulse Resp BP Pulse Ox 98.1 F 62 16 119/60 97 05/27/18 03:23 05/27/18 03:23 05/27/18 06:39 05/27/18 03:23 05/27/18 03:23 General: Awake, Alert, Oriented x3 HEENT: Normocephelic/atraumstic, sclera anicteric, mucous membranes moist Chest: Clear to auscultation bilaterally Cardiovascular: Regular rate and rhythm without murmurs, rubs, gallops Extremities: No cyanosis, or edema Active Medications Generic Name Dose Route Start Last Admin Trade Name Freq PRN Reason Stop Dose Admin Amlodipine Besylate 10 mg 05/24/18 09:00 05/27/18 08:00 Norvasc Tab* PO 10 mg DAILY T[facility]OR Administration Aspirin 81 mg 05/26/18 09:00 05/27/18 07:59 Aspirin Ec Tab* PO 81 mg DAILY T[facility]OR Administration Clonidine HCl 0.1 mg 05/24/18 09:00 05/27/18 07:59 Catapres Tab* PO 0.1 mg DAILY T[facility]OR Administration Clopidogrel Bisulfate 75 mg 05/25/18 17:00 05/27/18 07:59 Plavix Tab* PO 75 mg DAILY T[facility]OR Administration Cyanocobalamin 500 mcg 05/25/18 09:00 05/27/18 07:59 Vitamin B12 Tab* PO 500 mcg DAILY T[facility]OR Administration Dextrose 12.5 gm 05/24/18 03:29 05/25/18 16:23 D50w Syringe 50 Ml* IV PUSH 12.5 gm .FOR FS < 60 - SS PRN Administration FS < 60 Ferrous Sulfate 325 mg 05/25/18 09:00 05/27/18 07:59 Ferrous Sulfate Tab* PO 325 mg DAILY TAYLOR Administration Heparin Sodium (Porcine) 5,000 units 05/24/18 06:00 05/27/18 06:46 Heparin Vial(*) SUBCUT 5,000 units Q8HR TAYLOR Administration Hydralazine HCl 50 mg 05/24/18 21:00 05/27/18 07:59 Apresoline Tab* PO 50 mg TID TAYLOR Administration Ceftriaxone Sodium 1 gm/ 50 mls @ 200 mls/hr 05/25/18 00:00 05/27/18 02:29 Sodium Chloride IVPB 200 mls/hr Q24H TAYLOR Administration Insulin Human Lispro 0 units 05/24/18 07:30 05/27/18 08:05 Humalog* SUBCUT Not Given ACHS TAYLOR Protocol Levalbuterol HCl 1.25 mg 05/24/18 16:24 Levalbuterol Hcl INH TID PRN SOB/WHEEZING Metoprolol Succinate 12.5 mg 05/26/18 09:00 05/27/18 08:00 Toprol Xl Tab* PO 12.5 mg DAILY T[facility]OR Administration Pantoprazole Sodium 40 mg 05/26/18 09:00 05/27/18 07:59 Protonix Tab (Nf) PO 40 mg DAILY T[facility]LOR Administration Polyethylene Glycol/Electrolytes 17 gm 05/24/18 16:24 Miralax* PO DAILY PRN CONSTIPATION Rosuvastatin Calcium 40 mg 05/24/18 09:00 05/27/18 08:00 Crestor (Nf) PO 40 mg DAILY [facility] Administration Tamsulosin HCl 0.4 mg 05/24/18 09:00 05/27/18 08:00 Flomax Cap* PO 0.4 mg DAILY T[facility]OR Administration Neurological Findings: Awake, Alert, Oriented x3, appears tired Speech: fluent without dysarthric, repetition intact Cranial Nerve: PE, EOM intact, VFF, no nystagmus, face symmetric bilaterally, no dysarthria. Motor: s/s throughout, proximal and distal extremities x4 tone/bulk normal Sensation: intact to LT bilaterally upper and lower extremities Finger to nose, and heel to nunez without dysmetria. Laboratory Results - last 24 hr 05/26/18 05/26/18 05/26/18 07:44 08:19 12:04 POC Glucose (mg/dL) 56 L 87 128 H 05/26/18 05/26/18 05/27/18 16:27 20:49 00:32 POC Glucose (mg/dL) 175 H 181 H 164 H 05/27/18 04:21 POC Glucose (mg/dL) 139 H Carotid Dopplers: No hemodynamically significant stenosis. Please see reports for further details. Impression/Plan: 87 year old gentleman with history of coronary artery disease, diabetes, hyperlipidemia, hypertension, atrial fibrillation off anticoagulation admitted for blockage of wolfe catheter with retention of urine and UTI, and found to have possible stroke on CT and limited MRA brain. He is currently on plavix and aspirin. No new findings on history or examination. His goal is to get home as soon as possible. He agrees to proceed with further work up including MRI brain and echocardiogram. Education was provided re: diagnosis, differential diagnosis, planned studies, reasons for studies, results of carotid ultrasound. Over 30 minutes was spent in patient care, > 50% of this time was spent in education and counseling regarding above issues.
--- NOTE | 2018-05-27 15:09 | PN ---
Progress Note - Progress Note Date of Service: 05/27/18 Note: Neurology update and family discussion: Reviewed results of carotid dopplers, echocardiogram and MRI brain with patient and family. No hemodynamically significant stenosis on carotid dopplers. No cardioembolic source of stroke on transthoracic echocardiogram MRI brain was reviewed directly and discussed with two radiologists. It was a complex study. There is evidence of two old right cortical strokes, and previous hemorrhages. The findings look old. There is only one small area of the anterior right parietal stroke that was questioned to be new secondary to indeterminant color change on ADC map. After comparing old and new films, it was felt to most likely be old findings. Clinically there were no new findings on history or examination to suggest stroke. Accordingly, it appears the CT and MRI brain Findings are most likely an acute recognition of a chronic findings. Given previous bleeding in the brain, he is not a candidate for coumadin or a novel oral anticoagulant. Education was given on how these medications are the medication of choice to prevent stroke in atrial fibrillation, however with his previous bleeds, these medications are contraindicated. Plavix was stopped. He was on a baby aspirin qday on admission. Given the chronic nature of the brain lesions, and the risk he has of stroke, would continue ASA 81mg a day. Education was given to patient and family on the potential risks and benefits. He does have a history of falls. They tend to be backwards. Education was given on why a rollator walker is indicated. They have one at home. Education was given re: role ischemic lesions may have in cognitive decline. Call placed to hospitalist to discuss above. Will send copy of this note to primary care and patient's out patient administrative support associate. > 30 minutes was spent in patient care, with > 50 % of the time spent in education during the visit this afternoon.
--- NOTE | 2018-05-27 17:26 | PN ---
Subjective Date of Service: 05/27/18 Interval History: Mr. Sims reports feeling fine this morning. He is not particularly forthcoming with any information. He is anxious to return home and is tired of being in the hospital. He denies CP, SOB, N/V/D, dizziness. Family History: Unchanged from Admission Social History: Unchanged from Admission Past Medical History: Unchanged from Admission Objective Active Medications: Amlodipine Besylate (Norvasc Tab*) 10 mg PO DAILY [facility] Aspirin (Aspirin Ec Tab*) 81 mg PO DAILY [facility] Clonidine HCl (Catapres Tab*) 0.1 mg PO DAILY [facility] Cyanocobalamin (Vitamin B12 Tab*) 500 mcg PO DAILY [facility] Dextrose (D50w Syringe 50 Ml*) 12.5 gm IV PUSH .FOR FS < 60 - SS PRN FS < 60 Ferrous Sulfate (Ferrous Sulfate Tab*) 325 mg PO DAILY [facility] Heparin Sodium (Porcine) (Heparin Vial(*)) 5,000 units SUBCUT Q8HR [facility] Hydralazine HCl (Apresoline Tab*) 50 mg PO TID [facility] Ceftriaxone Sodium 1 gm/ (Sodium Chloride) 50 mls @ 200 mls/hr IVPB Q24H [facility] Insulin Human Lispro (Humalog*) 0 units SUBCUT ACHS TAYLOR; Protocol Levalbuterol HCl (Levalbuterol Hcl) 1.25 mg INH TID PRN SOB/WHEEZING Metoprolol Succinate (Toprol Xl Tab*) 12.5 mg PO DAILY [facility] Pantoprazole Sodium (Protonix Tab (Nf)) 40 mg PO DAILY [facility] Polyethylene Glycol/Electrolytes (Miralax*) 17 gm PO DAILY PRN CONSTIPATION Rosuvastatin Calcium (Crestor (Nf)) 40 mg PO DAILY [facility] Tamsulosin HCl (Flomax Cap*) 0.4 mg PO DAILY [facility] Vital Signs - 8 hr 05/27/18 05/27/18 12:10 15:22 Temperature 98.0 F 97.3 F Pulse Rate 61 59 Respiratory 18 16 Rate Blood Pressure 112/55 114/54 (mmHg) O2 Sat by Pulse 97 98 Oximetry Oxygen Devices in Use Now: None Appearance: Elderly male sitting in bed in NAD Eyes: No Scleral Icterus Ears/Nose/Mouth/Throat: Mucous Membranes Moist Neck: NL Appearance and Movements; NL JVP, Trachea Midline Respiratory: Symmetrical Chest Expansion and Respiratory Effort, Clear to Auscultation Cardiovascular: NL Sounds; No Murmurs; No JVD, - - Irregular Abdominal: NL Sounds; No Tenderness; No Distention Extremities: No Edema Skin: No Rash or Ulcers Neurological: NL Sensation, - - Oriented to self and place Lines/Tubes/Other Access: Clean, Dry and Intact Peripheral IV Nutrition: Taking PO's Result Diagrams: 05/26/18 05:21 05/26/18 05:21 Assess/Plan/Problems-Billing Assessment: Mr. Sims is an 87yo male with a PMH significant for Afib, CAD, and DM II who presents to the ED with abdominal pain and was found to have a clogged wolfe catheter and likely UTI. Patient is improving with wolfe change and antibiotics. 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 (2) UTI (urinary tract infection) Current Visit: Yes Status: Acute Comment: - Catheter-associated, present on admission; catheter changed - Suspect cause of hematuria causing clot and obstruction - Urine culture with Klebsiella oxytoca growing >100K colonies - Continue Ceftriaxone for a 7-14 day course - Follow up with Urology for cystoscopy outpatient (3) Acute kidney failure Current Visit: Yes Status: Acute Priority: High Comment: - Acute on Chronic, improving and now near baseline - Significantly worsened cret, likely secondary to obstruction on admission - Plan for outpatient f/u with nephrology (4) Altered mental status Current Visit: Yes Status: Acute Code(s): R41.82 - ALTERED MENTAL STATUS, UNSPECIFIED SNOMED Code(s): 948920170 Comment: - Lethargy, frequent mood swings and increasing confusion - Headache, unclear if related - CT brain shows multiple subacute CVAs - May also have a component of metabolic encephalopathy vs delirium from hospital; has history of wandering at home and confusion at night - Continue supportive care; avoid medications that exacerbate delirium (5) Atrial fibrillation Current Visit: Yes Status: Acute Priority: Medium Code(s): I48.91 - UNSPECIFIED ATRIAL FIBRILLATION SNOMED Code(s): 59776945 Comment: - Continue propranolol - Not anticoagulated at this time, will not initiate due to hematuria and hemorrhagic CVA (6) CAD (coronary artery disease) Current Visit: No Status: Acute Priority: Medium Code(s): I25.10 - ATHSCL HEART DISEASE OF [place] CORONARY ARTERY W/O ANG PCTRS SNOMED Code(s): 99616219 Comment: - Continue ASA and statin (7) COPD (chronic obstructive pulmonary disease) Current Visit: No Status: Acute Priority: Medium Code(s): J44.9 - CHRONIC OBSTRUCTIVE PULMONARY DISEASE, UNSPECIFIED SNOMED Code(s): 80596818 Comment: - No signs of acute exacerbation - PRN inhalers and home maintenance inhaler when available (8) Diabetes Current Visit: No Status: Acute Priority: Medium Code(s): E11.9 - TYPE 2 DIABETES MELLITUS WITHOUT COMPLICATIONS SNOMED Code(s): 57175554 Comment: - Glucose moderately well controlled - HgA1C 8.4 - Glargine discontinued due to hypoglycemia - Continue lispro SSI only (9) DVT prophylaxis Current Visit: No Status: Acute Priority: Medium Code(s): UWJ2625 - SNOMED Code(s): 428580750 Comment: - Heparin SQ (10) Full code status Current Visit: Yes Status: Acute Code(s): Z78.9 - OTHER SPECIFIED HEALTH STATUS SNOMED Code(s): 745901426 Status and Disposition: Inpatient for full evaluation of UTI and AMS. Discharge when medically stable, possibly tomorrow. Attending: Diana Hanna
[2018-05-28] MEDS: cefTRIAXone(*) 1 GM in NS 0.9% 50 ML* 50 ML IVPB SCH (00:50)
[2018-05-28 05:48] LABS: ABS Basophils 0 10^3/ul (0-0.2); ABS Eosinophils 0.6 10^3/ul (0-0.6); ABS Lymphocytes 2.2 10^3/ul (1.0-4.8); ABS Monocytes 0.9 10^3/ul (0-0.8); ABS Neutrophils 6.1 10^3/ul (1.5-7.7); ABS Nucleated RBC 0 10^3/ul; Eosinophil % 6.5 %; Hematocrit 35 % (42-52); Hemoglobin 11.5 g/dl (14.0-18.0); Lymphocyte % 22.5 %; Mean Corpuscular HGB Conc 33 g/dl (31-36); Mean Corpuscular Hemoglobin 27 pg (27-31); Mean Corpuscular Volume 83 fL (80-94); Mean Platelet Volume 8.7 fL (7.4-10.4); Nucleated Red Blood Cells % 0; Platelet Count 252 10^3/ul (150-450); Red Blood Count 4.24 10^6/ul (4.00-5.40); Red Cell Distribution Width 15 % (10.5-15); White Blood Count 9.8 10^3/ul (3.5-10.8)
[2018-05-28] MEDS: Heparin VIAL(*) 5000 UNITS/ML VIAL (FIVE THOUSAND) SUBCUT SCH (05:51)
[2018-05-28] MEDS: Insulin LISPRO* 1 UNITS UNIT SUBCUT SCH (09:20)
[2018-05-28] MEDS: Metoprolol Succinate XL TAB* 25 MG PO SCH (09:21)
[2018-05-28] MEDS: Ferrous Sulfate TAB* 325 MG PO SCH (09:22)
[2018-05-28] MEDS: Aspirin EC TAB* 81 MG TAB.EC PO SCH (09:22)
[2018-05-28] MEDS: cloNIDine TAB* 0.1 MG PO SCH (09:22)
[2018-05-28] MEDS: hydrALAZINE TAB* 25 MG PO SCH (09:23)
[2018-05-28] MEDS: amLODIPine TAB* 5 MG PO SCH (09:23)
[2018-05-28] MEDS: Cyanocobalamin TAB* 500 MCG PO SCH (09:23)
[2018-05-28] MEDS: CMCS: Pantoprazole TAB (NF) 40 MG TAB PO SCH (09:23)
[2018-05-28] MEDS: Tamsulosin CAP* 0.4 MG PO SCH (09:23)
[2018-05-28] MEDS: CMC: Rosuvastatin (NF) 20 MG TAB PO SCH (09:24)
[2018-05-28 12:48] VITALS: BP 106/59
--- NOTE | 2018-05-29 11:07 | DS ---
CC: Dr. Flaco Motley; Dr. James Naylor. * DISCHARGE SUMMARY: DATE OF ADMISSION: 05/24/18 DATE OF DISCHARGE: 05/28/18 PRIMARY CARE PROVIDER: Dr. Flaco Motley. UROLOGIST: Dr. James Naylor. ATTENDING PHYSICIAN: Dr. Diana Hanna * (dictated by Deneen Llanes NP). PRIMARY DIAGNOSES: 1. Cerebrovascular accident. 2. Catheter-related urinary tract infection, present on admission. 3. Acute kidney injury. 4. Altered mental status. SECONDARY DIAGNOSES: 1. Atrial fibrillation. 2. Coronary artery disease. 3. Chronic obstructive pulmonary disease. 4. Diabetes mellitus, type 2. STUDIES WHILE IN THE HOSPITAL: Abdomen and pelvis CT on 05/23/18, reads as, findings suggest cystitis with left ureteral and renal collecting system gas likely from an indwelling Julio catheter and most likely pyonephritis. Mild posterior lower lobe fibrosis. Distal colonic diverticulosis. Severe prostatomegaly. Brain CT on 06/21/18, reads as, limited study. There are areas of decreased attenuation on the right frontal and parietal lobes suspicious for subacute infarcts. EKG on 05/25/18 showed atrial fibrillation with a rate of 67. Head MRA on 05/25/18, reads as, area of signal loss located within the lumen of the junction of the right M1 and M2 segments of the right middle cerebral artery , unclear whether this represents a thrombus in the area or focal narrowing due to atherosclerosis. There are areas of focal narrowing involving the distal M2 branches. However, similar changes are noted on the left side and may represent an artifact. Areas of ischemia involving portions of the right frontal and parietal lobes, which may be subacute . The cortex shows increased signal with a subcortical area of low signal intensity. This may represent laminar necrosis with ischemic white matter edema. Carotid Doppler study on 05/26/18, reads as, less than 50% stenosis of the internal carotids arteries bilaterally. Brain MRI on 05/27/18, reads as, there appears to be restriction of diffusion with decreased signal on the ADC map involving the precentral gyrus in the right frontal lobe consistent with acute infarct. No other areas of restriction of diffusion is noted. Susceptibility artifact demonstrates evidence of prior hemorrhage in 2 subcortical areas in the right frontal lobe. Left-sided mastoid sinusitis. HISTORY OF PRESENT ILLNESS AND HOSPITAL COURSE: Mr. Sims is an 87-year-old male with a past medical history of AFib, CAD and diabetes, who presented to the emergency room on 05/24/18 with complaints of abdominal pain. Please see the history and physical by Dr. Santiago for complete summary of the events leading up to this hospitalization. In short, the patient has chronic urinary retention with a chronic indwelling Julio catheter. He had been in his usual state of health and developed severe cramping of the lower abdomen. I will note that he is demented and unable to provide a reliable history. His , however, was present at the time of admission. In the ER, the Julio catheter was noted to be clogged with a blood clot. The catheter was changed and approximately 700 ml of foul smelling urine was drained from the bladder. His abdominal pain resolved. He was admitted by the hospitalist service for catheter related urinary tract infection present on admission. The patient was started on ceftriaxone for the urinary tract infection. Ultimately, the urine culture grew Klebsiella oxytoca with greater than 100,000 colonies. His hematuria resolved. He was noted to have some altered mental status though he is demented at baseline. The source of the altered mental status was unclear and so imaging was completed as noted above. After imaging was completed, there was a concern for CVA. It is likely that the urinary tract infection did play some role in the altered mental status. Ultimately, the patient was consulted by Neurology, who recommended starting the patient on aspirin and Plavix for 30 days. He recommended full anticoagulation because of the presence of atrial fibrillation though the family was opposed to anticoagulation. The patient was scheduled for an MRI and was unable to complete the MRI initially due to claustrophobia. He did have an acute kidney injury on admission secondary to outlet obstruction, which resolved after changing the Julio catheter. On 05/26/18, his creatinine was back down to 2.88 , which appears to be close to his baseline. Ultimately, the patient was able to have a brain MRI on 05/27/18. At that time, he was seen by Dr. Kim from Neurology. The MRI was complex, though according to Dr. Kim, she determined that there were 2 right cortical subacute CVAs with small amount of hemorrhage within them. Therefore, the patient was taken off Plavix and any further anticoagulation is contraindicated. He will be kept on aspirin for further stroke prevention. Because the family was not interested in pursuing any further treatment for the atrial fibrillation or CVA, the patient was cleared for discharge from neurology standpoint. As of today, the patient reports feeling well. He offers no complaints and he is anxious to return to home. His Julio is draining clear yellow urine. There has been no further clots or concerns for obstruction. He has no focal neurological deficits and is oriented to self and place, at his baseline. Mr. Sims is stable for discharge today. Vital signs are as follows: Temperature 97.8, heart rate 61, respiratory rate 20, oxygen saturation 96% on room air. Blood pressure 106/59. DISCHARGE MEDICATIONS: New home medications: 1. Augmentin 875 mg p.o. b.i.d. x9 days. 2. Aspirin 81 mg p.o. daily. Changed home medications: 1. Metoprolol succinate XL 12.5 mg p.o. daily (previously was 25 mg daily) 2. Torsemide 10 mg p.o. daily (previously was 20 mg p.o. daily). CONTINUED HOME MEDICATIONS: 1. Albuterol MDI two puffs q. 4 hours p.r.n. shortness of breath, wheezing. 2. Amlodipine 10 mg p.o. daily. 3. Ascorbic acid 500 mg p.o. daily. 4. Clonidine 0.1 mg p.o. daily. 5. Cortisporin 1 drop both ears t.i.d. 6. Desloratadine 5 mg p.o. daily p.r.n. allergy symptoms. 7. Ferrous sulfate 325 mg p.o. daily. 8. Hydralazine 15 mg p.o. t.i.d. 9. Hydrocortisone 1 application daily p.r.n. skin irritation. 10. Levalbuterol nebulizer 3 mL inhalation t.i.d. p.r.n. shortness of breath or wheezing. 11. Multivitamin one tab p.o. daily. 12. Nitro 0.4 mg sublingual q. 5 minutes p.r.n. chest pain 13. Pantoprazole 40 mg p.o. daily. 14. MiraLAX 17 g p.o. daily. 15. Rosuvastatin 40 mg p.o. daily. 16. Tamsulosin 0.4 mg p.o. daily. 17. Vitamin B12 500 mcg p.o. daily. 18. Lantus subcutaneous daily per instructions from primary care provider. Mr. Sims will be discharged back home with his . Activity will be as tolerated. Diet will be diabetic, heart healthy. Medications are noted above. I will note that the med rec completed on admission was not correct. It listed metformin, which the patient has not been taking and it listed an incorrect dose of Januvia and Lantus. I did speak with the patient's after discharge to clear up any medication concerns. Initially, I had recommend on discharge that the patient continue Januvia and metformin and to discontinue his Lantus, though when I later spoke with the , she advised that the patient was no longer on metformin and had been taking Lantus per instructions from his PCP to give a sliding scale of Lantus based on blood sugar. I advised her to continue that sliding scale and the Januvia, the metformin has already been discontinued. I additionally made changes in his metoprolol and torsemide dosing because of concerns for soft blood pressures. I have prescribed Augmentin for 9 days to complete a total of 14 days of antibiotic therapy for his complicated UTI. The patient's has been instructed to bring him to the emergency room or nearest hospital for any worsening symptoms, shortness of breath, lightheadedness, dizziness, chest discomfort, high fevers, chills, night sweats , loss of consciousness, or any other worrisome signs or symptoms. This is a summarized report of a complex medical history and hospital stay. For further details, please see the entire medical record. TIME SPENT: Approximately 45 minutes was spent on this discharge, greater than half of that time spent [id number] with the and over the phone with the patient's discussing discharge plans and instructions. DENEEN LLANES, STIVEN [id number]/[facility] #: [id number] [place]
== END 2018-05-28 13:10 | disposition home or self-care (01) | DRG 698 ==
LOC: ED 20:36 → MED 05-24 03:02 → OBSVTOIN 05-25 15:43 → MEDTELE 05-25 16:03
PROVIDERS: ADMIT Hospitalist; ATTEND Internal Medicine
PROC: 0T2BX0Z Change Drainage Device in Bladder, External Approach (ICD-10-PCS; principal; 2018-05-25)
DX: T83.518A Infection and inflammatory reaction due to other urinary catheter, initial encounter (principal); I63.9 Cerebral infarction, unspecified; G93.41 Metabolic encephalopathy; N17.9 Acute kidney failure, unspecified; N12 Tubulo-interstitial nephritis, not specified as acute or chronic; I48.92 Unspecified atrial flutter; I62.9 Nontraumatic intracranial hemorrhage, unspecified; Y73.1 Therapeutic (nonsurgical) and rehabilitative gastroenterology and urology devices associated with adverse incidents; I25.10 Atherosclerotic heart disease of native coronary artery without angina pectoris; J44.9 Chronic obstructive pulmonary disease, unspecified; N30.90 Cystitis, unspecified without hematuria; K57.30 Diverticulosis of large intestine without perforation or abscess without bleeding; K21.9 Gastro-esophageal reflux disease without esophagitis; N40.0 Benign prostatic hyperplasia without lower urinary tract symptoms; F03.90 Unspecified dementia, unspecified severity, without behavioral disturbance, psychotic disturbance, mood disturbance, and anxiety; E11.649 Type 2 diabetes mellitus with hypoglycemia without coma; I48.2 Chronic atrial fibrillation; R31.9 Hematuria, unspecified; T39.015A Adverse effect of aspirin, initial encounter; I65.23 Occlusion and stenosis of bilateral carotid arteries; J32.8 Other chronic sinusitis; B96.89 Other specified bacterial agents as the cause of diseases classified elsewhere; F40.240 Claustrophobia; I10 Essential (primary) hypertension; R33.9 Retention of urine, unspecified; Z98.42 Cataract extraction status, left eye; Z98.41 Cataract extraction status, right eye; Z80.1 Family history of malignant neoplasm of trachea, bronchus and lung; Z79.82 Long term (current) use of aspirin; Z79.4 Long term (current) use of insulin; Z90.89 Acquired absence of other organs; Z91.81 History of falling; Z82.49 Family history of ischemic heart disease and other diseases of the circulatory system; Z87.891 Personal history of nicotine dependence; Y92.9 Unspecified place or not applicable
CPT/HCPCS: 36415; 70450; 70544; 70547; 70551; 74176; 80048; 80053; 80061; 81003; 81015; 83036; 83605; 83735; 83880; 84145; 85025; 85610; 85730; 86140; 87040; 87077; 87086; 87186; 93005; 93306; 93880; 99284; A9270-GY; G0378; G8978-GP-CJ; G8979-GP-CI; G8987-GO-CK; G8988-GO-CI; J0696; J1644

== ENCOUNTER 2018-08-01 13:49 | Inpatient (IN) | payer MEDICARE, BC ==
--- NOTE | 2018-08-01 14:06 | ED ---
Neurological HPI - HPI Summary HPI Summary: Patient is a 87 y/o M presenting to ED with complaints of left sided facial droop since around 1999 last night and slurred speech onsetting around 0630 today. states that she first noted facial droop last night but states that the patient was also "making faces" at her, so she was not concerned about the patient's Sx. Slurred speech onset this morning, family members also report that the patient had been complaining of a swollen tongue. Provider in room at 1357, NIHSS started at 1359, patient to CT immediately afterwards. On triage, pain is denied, nothing is noted to aggravate/alleviate Sx. Home medications and allergies are reviewed. - History of Current Complaint Chief Complaint: EDNeurologicalDeficit Stated Complaint: POSSIBLE STROKE Hx Obtained From: Patient Onset/Duration: Started hours ago - slurred speech onset around 0630, Started days ago - facial droop onset 1999 last night, Still Present Timing: Constant Current Severity: None - pain denied Neurological Deficit Location: Facial - left sided facial droop Pain Intensity: 0 Pain Scale Used: 0-10 Numeric - 0/10 Character: Impaired Speech, Other: - left facial droop Aggravating: Nothing Alleviating: Nothing Associated Signs and Symptoms: Positive: Weakness - left facial droop, Impaired Speech - Additional Pertinent History Primary Care Physician: [id number] - Allergy/Home Medications Allergies/Adverse Reactions: Allergies Allergy/AdvReac Type Severity Reaction Status Date / Time No Known Allergies Allergy Verified 08/01/18 13:53 Home Medications: Home Medications Aspirin 81 mg CHEW TAB* [Aspirin Low Dose TAB*] 81 mg PO DAILY 08/01/18 [ History Confirmed 08/01/18] Insulin GLARGINE(*) [Lantus(*)] 100 units SUBCUT BID 08/01/18 [History Confirmed 08/01/18] Metoprolol Succinate XL TAB* [Toprol XL TAB*] 12.5 mg PO BID 08/01/18 [History Confirmed 08/01/18] Sitagliptin Phosphate [Januvia] 100 mg PO DAILY 08/01/18 [History Confirmed 03/11] Torsemide TAB* [Demadex 20 MG*] 10 mg PO DAILY 08/01/18 [History Confirmed 08/01] Umeclidin/Vilant 62.5 MDI(NF) [ANORO 62.5/25 Ellipta DEVICE (NF)] 1 inh INH DAILY 08/01/18 [History Confirmed 08/01/18] amLODIPine TAB* [Norvasc 5 mg TAB*] 10 mg PO DAILY 08/01/18 [History Confirmed 08/01/18] PMH/Surg Hx/FS Hx/Imm Hx Endocrine/Hematology History: Reports: Hx Diabetes - DM II Cardiovascular History: Reports: Hx Coronary Artery Disease, Hx Hypertension Denies: Hx Pacemaker/ICD Respiratory History: Reports: Hx Chronic Obstructive Pulmonary Disease (COPD) GI History: Reports: Hx Gastroesophageal Reflux Disease History: Reports: Hx Benign Prostatic Hyperplasia Sensory History: Reports: Hx Contacts or Glasses - for reading, has glass here. Denies: Hx Hearing Aid Opthamlomology History: Reports: Hx Contacts or Glasses - for reading, has glass here. Psychiatric History: Denies: Hx Panic Disorder - Surgical History Surgery Procedure, Year, and Place: [place], CATARCTS Hx Anesthesia Reactions: No - Immunization History Date of Tetanus Vaccine: unk Date of Influenza Vaccine: unk Infectious Disease History: No Infectious Disease History: Denies: Traveled Outside the [place] in Last 30 Days - Family History Known Family History: Negative: Cardiac Disease, Diabetes - Social History Alcohol Use: None Substance Use Type: Reports: None Smoking Status (MU): Never Smoked Tobacco Review of Systems Positive: Edema - TONGUE Neurological: Other - POSITIVE - FACIAL DROOP Positive: Slurred Speech All Other Systems Reviewed And Are Negative: Yes Physical Exam - Summary Physical Exam Summary: VITAL SIGNS: Reviewed. GENERAL: Patient is a well-developed and nourished male who is lying comfortable in the stretcher. Patient is not in any acute respiratory distress. HEAD AND FACE: No signs of trauma. No ecchymosis, hematomas or skull depressions. No sinus tenderness. EYES: PERRLA, EOMI x 2, No injected conjunctiva, no nystagmus. No photophobia. EARS: Hearing grossly intact. Ear canals and tympanic membranes are within normal limits. MOUTH: Oropharynx within normal limits. NECK: Supple, trachea is midline, no adenopathy, no JVD, no carotid bruit, no c- spine tenderness, neck with full ROM. No meningeal signs, no Kernig's or brudzinskis signs. CHEST: Symmetric, no tenderness at palpation LUNGS: Clear to auscultation bilaterally. No wheezing or crackles. CVS: Regular rate and rhythm, S1 and S2 present, no murmurs or gallops appreciated. ABDOMEN: Soft, non-tender. No signs of distention. No rebound no guarding, and no masses palpated. Bowel sounds are normal. EXTREMITIES: FROM in all major joints, no edema, no cyanosis or clubbing. NEURO: NIH 5, see below for breakdown; alert and oriented x2, follows commands, some impaired speech, facial paralysis, SKIN: Dry and warm GCS: 15 Triage Information Reviewed: Yes Vital Signs On Initial Exam: Initial Vitals Temp Pulse Resp BP Pulse Ox 97.5 F 62 16 131/65 98 08/01/18 13:51 08/01/18 13:51 08/01/18 13:51 08/01/18 13:51 08/01/18 13:51 Vital Signs Reviewed: Yes Diagnostics - Vital Signs Vital Signs Temp Pulse Resp BP Pulse Ox 08/01/18 13:51 97.5 F 62 16 131/65 98 - Laboratory Result Diagrams: 08/02/18 05:33 08/02/18 05:33 Lab Statement: Any lab studies that have been ordered have been reviewed, and results considered in the medical decision making process. - CT brain ct CT Interpretation Completed By: Radiologist Summary of CT Findings: IMPRESSION: 1. NO EVIDENCE FOR GROSS ACUTE INFARCT, MASS EFFECT OR HEMORRHAGE. 2. CHRONIC INFARCTS IN THE RIGHT FRONTAL AND RIGHT PARIETAL LOBES. 3. ATROPHY AND FINDINGS SUGGESTIVE OF MILD CHRONIC SMALL VESSEL ISCHEMIC CHANGES. THIS REPORT WAS REVIEWED BY ED PHYSICIAN. - EKG 1414 Cardiac Rate: NL - rate of 61 BPM EKG Rhythm: Sinus Rhythm Summary of EKG Findings: EKG showed sinus rhythm with rate of 61 BPM, prolonged MN interval. NIH Scale - NIH Scale Level of Consciousness: Alert/Keenly Responsive Ask Patient the Month and His/Her Age: Neither Correct/Aphasic Ask Pt to Open/Close Eyes and Painter Drum/Release Non-Paretic Hand: Both Correctly Best Gaze (Only Horizontal Eye Movement): Normal Visual Field Testing: No Visual Loss Facial Paresis-Pt to Smile & Close Eyes or Grimace Symmetry: Minor Paralysis Motor Function - Right Arm: No Drift-Holds 10 Seconds Motor Function - Left Arm: No Drift-Holds 10 Seconds Motor Function - Right Leg: No Drift-Holds 10 Seconds Motor Function - Left Leg: No Drift-Holds 10 Seconds Limb Ataxia-Must be out of Proportion to Weakness Present: Absent Sensory (Use Pinprick to Test Arms/Legs/Trunk/Face): Normal Best Language (Describe Picture, Name Items): Some Loss Dysarthria (Read Several Words): Slurs Some Words Extinction and Inattention: No Abnormality Total Score: 5 Course/Dx - Course Assessment/Plan: Patient is a 87 y/o M presenting to ED with complaints of left sided facial droop since around 1999 last night and slurred speech onsetting around 0630 today. states that she first noted facial droop last night but states that the patient was also "making faces" at her, so she was not concerned about the patient's Sx. Slurred speech onset this morning, family members also report that the patient had been complaining of a swollen tongue. Blood work without any significant abnormality except for what was a count of 12.6, chloride 99, BUN is 36, creatinine is 2.55, glucose 1:30, urinalysis is contaminated. Head CT impression: No evidence for gross acute infarct, mass effect or hemorrhage. Chronic infarcts in the right frontal and right parietal lobes. Atrophy and findings suggestive of mild chronic small vessel ischemic changes. In the ED course the patient continues to have the facial drooping, and he did not past the swallowing test. He was given an aspirin per rectum. At this point I discussed my physical exam, findings and test results with Dr. Peralta from neurology who recommends an MRI of the brain, a CTA of head and neck, and an echocardiogram as well as admission to the hospitalist services. However the patient has a chronic renal failure therefore unable to do the CTA at this point. I discussed my physical exam, findings and test results with Dr. Tomas who will admit the patient to his services for further workup and management. - Diagnoses Provider Diagnoses: CVA (cerebral vascular accident) - Physician Notifications Discussed Care Of Patient With: Carloz Peralta Time Discussed With Above Provider: 15:52 Instructed by Provider To: Other - Patient's case was discussed with Dr. Peralta at 1552. He will consult on patient, recommends an MRI of the brain, a CTA of head and neck, and an echocardiogram as well as admission to the hospitalist services. 1623 - Patient's case was discussed with Dr. Tomas, Dr. Tomas accepts for admission. - Critical Care Time Critical Care Time: 75-104 min Discharge - Sign-Out/Discharge Documenting (check all that apply): Patient Departure - admit All imaging exams completed and their final reports reviewed: Yes Patient Received Moderate/Deep Sedation with Procedure: No - NO PROCEDURES DONE - Discharge Plan Condition: Good Disposition: ADMITTED TO [facility] - Billing Disposition and Condition Condition: GOOD Disposition: Admitted to [facility] - Attestation Statements Document Initiated by Ivaibe: Yes Documenting Scribe: MIGUEL BARR Provider For Whom Bert is Documenting (Include Credential): DORA SULLIVAN MD Scribe Attestation: IMIGUEL , scribed for DORA SULLIVAN MD on 08/02/18 at 1315. Scribe Documentation Reviewed: Yes Provider Attestation: The documentation as recorded by the ivaibMIGUEL pimentel accurately reflects the service I personally performed and the decisions made by me, DORA SULLIVAN MD Status of Scribe Document: Viewed
[2018-08-01 14:13] LABS: ABS Basophils 0.1 10^3/ul (0-0.2); ABS Eosinophils 0.8 10^3/ul (0-0.6); ABS Lymphocytes 2.4 10^3/ul (1.0-4.8); ABS Monocytes 1.3 10^3/ul (0-0.8); ABS Neutrophils 7.9 10^3/ul (1.5-7.7); ABS Nucleated RBC 0 10^3/ul; Eosinophil % 6.4 %; Hematocrit 47 % (42-52); Hemoglobin 15.3 g/dl (14.0-18.0); Lymphocyte % 19.4 %; Mean Corpuscular HGB Conc 32 g/dl (31-36); Mean Corpuscular Hemoglobin 27 pg (27-31); Mean Corpuscular Volume 83 fL (80-94); Mean Platelet Volume 8.4 fL (7.4-10.4); Nucleated Red Blood Cells % 0.1; Platelet Count 298 10^3/ul (150-450); Red Blood Count 5.72 10^6/ul (4.00-5.40); Red Cell Distribution Width 16 % (10.5-15); White Blood Count 12.6 10^3/ul (3.5-10.8)
[2018-08-01 14:27] LABS: Activated Partial Thrombo Time 32.8 seconds (26.0-36.3); INR 0.92 (0.77-1.02)
[2018-08-01 14:32] LABS: Albumin 4.3 g/dL (3.2-5.2); Albumin/Globulin Ratio 1.3 (1-3); BUN/Creatinine Ratio 14.1 (8-20); EGFR Non-African American 23.9 (>60); Globulin 3.3 g/dL (2-4); HDL Cholesterol 37.7 mg/dL; Potassium 3.6 mmol/L (3.5-5.0); Total Bilirubin 0.6 mg/dL (0.2-1.0); Total Protein 7.6 g/dL (6.4-8.9)
[2018-08-01 14:33] LABS: Troponin I 0.02 ng/mL (<0.04)
[2018-08-01 15:27] LABS: Urine Appearance Clear; Urine Bacteria 1+ (Absent); Urine Bilirubin Negative (Negative); Urine Blood Negative (Negative); Urine Color Yellow; Urine Glucose Negative (Negative); Urine Ketones Negative (Negative); Urine Nitrite Negative (Negative); Urine Protein Negative (Negative); Urine Red Blood Cell Trace(0-2/hpf) (Absent); Urine Specific Gravity 1.008 (1.010-1.030); Urine Squamous Epithelial Cell Present (Absent); Urine Urobilinogen Negative (Negative); Urine White Blood Cell 1+(6-10/hpf) (Absent)
[2018-08-01] MEDS ORDERED: Aspirin SUPP* 300 MG PR ONE (16:05)
[2018-08-01] MEDS ORDERED: Albuterol HFA INHALER* 8 gm MDI INH PRN (17:43)
[2018-08-01] MEDS ORDERED: Clopidogrel TAB* 75 MG PO ONE (17:43)
[2018-08-01] MEDS ORDERED: Levalbuterol 1.25MG/0.5ML NEB INH PRN (17:43)
[2018-08-01] MEDS: Insulin GLARGINE(*) 1 UNITS UNIT SUBCUT SCH (20:00)
[2018-08-01] MEDS: Ferrous Sulfate TAB* 325 MG PO SCH (20:01)
[2018-08-01] MEDS ORDERED: Insulin GLARGINE(*) 1 UNITS UNIT SUBCUT SCH (21:00)
--- NOTE | 2018-08-01 21:01 | HP ---
AMENDED REPORT NOW INCLUDES COSIGNER DESIGNATION CC: Dr. Motley * HISTORY AND PHYSICAL: DATE OF ADMISSION: 08/01/18 PROVIDER: Sera Neff NP ATTENDING PHYSICIAN: Dr. Tomas * (report dictated by Sera Neff NP) PRIMARY CARE PROVIDER: Dr. Motley CHIEF COMPLAINT: Left facial droop. HISTORY OF PRESENT ILLNESS: Mr. Sims is an 87-year-old male presenting to the emergency department with complaints of left-side facial droop starting around 8 p.m. last night with accompanied slurred speech. The patient is accompanied to the emergency department by his son and his . The was present when this developed last evening and she thought he was joking around making funny faces. She does report that he also did have slurred speech and it was difficult to understand him. The patient also reports he had a mild sinus headache starting last night with a feeling of a swollen tongue, he reports these two symptoms lasted until he came to the emergency department. He reports when he woke up this morning. He continued to have notable left-sided facial droop and slurred speech and reports this also has improved slightly since coming to the emergency department. The patient denies any extremity weakness. No vision changes. He denies difficulty swallowing; however, the primary nurse in the emergency department did report he did not tolerate thin liquids during her bedside swallowing eval. I personally did a swallowing eval with the patient with thickened liquids and pureed food which the patient did well with Per patient and report he ate a piece of toast this morning without difficulty. The patient denies any recent illnesses, fever, chills. Reports that his indwelling Julio catheter is changed monthly at [facility]. The patient denies shortness of breath, chest pain. PAST MEDICAL HISTORY: 1. Atrial fibrillation. 2. Coronary artery disease. 3. COPD. 4. Hypertension. 5. Type 2 diabetes. 6. GERD. 7. History of cardiac arrest in 2016. 8. Insulin dependent type 2 diabetes. 9. Chronic kidney disease. PAST SURGICAL HISTORY: 1. Appendectomy. 2. Bilateral cataract extracts. CURRENT MEDICATIONS: 1. Aspirin 81 mg p.o. daily. 2. Lantus 100 units subcu b.i.d. 3. Ferrous sulfate 325 mg p.o. b.i.d. 4. Desloratadine 5 mg p.o. q.24 hours p.r.n. 5. Hydralazine 50 mg p.o. t.i.d. 6. Hydrocortisone valerate 1 application topical q.24 hours p.r.n. 7. Norvasc 10 mg p.o. daily. 8. Vitamin B12 500 mcg p.o. daily. 9. Multivitamin 1 tab p.o. daily. 10. Vitamin C 500 mg p.o. daily. 11. Ellipta 62.5/25 one inhalation daily. 12. Torsemide 10 mg p.o. daily. 13. Metoprolol succinate XL 12.5 mg p.o. daily. 14. Albuterol HFA inhaler 2 puffs INH q.4 hours p.r.n. 15. Flomax 0.4 mg p.o. daily. 16. Crestor 40 mg p.o. daily. 17. MiraLAX 17 g p.o. daily. 18. Protonix 40 mg p.o. daily. 19. Nitroglycerin 0.4 mg sublingual q.5 minutes p.r.n. 20. Januvia 100 mg p.o. daily. 21. Levalbuterol 1.25 mg/3 mL INH t.i.d. p.r.n. ALLERGIES: No known drug allergies. FAMILY HISTORY: The patient's mother had a history of lung cancer, she in her 60s. She was also a heavy smoker. His father of coronary artery disease in his late 60s. SOCIAL HISTORY: The patient is a former smoker, quitting in 1994, smoking approximately 5 packs a day until he quit many years ago. Rare alcohol use. He is and currently lives at home with his , Ivon who is his healthcare proxy. He has 5 children. 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 REVIEW OF SYSTEMS: A 14-point review of systems was performed. All the pertinent positives and negatives are mentioned in the history of present illness. Otherwise are negative. PHYSICAL EXAMINATION GENERAL APPEARANCE: An 87-year-old male sitting up in the emergency department , alert and oriented x3, in no acute distress, notable left facial droop. VITAL SIGNS: Temperature 97.8, heart rate 60, respirations 18, pulse oximetry 95% on room air, and blood pressure 142/75. HEENT: Head is normocephalic, atraumatic. Pupils are equal and reactive to light. Oropharynx is clear. Moist mucous membranes. NECK: Supple. LUNGS: Clear to auscultation bilaterally. Good aeration throughout. CARDIAC: S1 and S2. Regular rate and rhythm. No murmur, rubs, or gallop appreciated. ABDOMEN: Soft, nontender, and nondistended. Normal bowel sounds throughout. MUSCULOSKELETAL: Full range of motion in all extremities. Strength is 5/5 throughout. No cyanosis or clubbing is noted. NEUROLOGIC: Cranial nerves II through XII are grossly intact. Sensation is intact to light touch throughout. Fljvjg-ml-[id number] test intact. No pronator drift. Notable left facial droop. Tongue when extended is a little to the right. Speech is slightly slurred. Extraocular movements intact. SKIN: Warm, pink, dry. DIAGNOSTIC STUDIES/LAB DATA: Sodium 139, potassium 3.6, chloride 99, carbon dioxide 30, anion gap 10, BUN 36, creatinine 2.55, glucose 130, lactic acid 1.6 , calcium 10.0, total bilirubin 0.60. AST 19, ALT 10, alkaline phosphatase 84, troponin 0.02, total protein 7.6, albumin 4.3, triglycerides 172, cholesterol 158, LDL 86, HDL 37, INR 0.92. WBC 12.6, RBC 5.72, HGB 15.3, HCT 47, MCV 83, RDW is 16, and platelet count 296. Brain CT, impression: 1. No evidence for gross acute infarct, mass effect or hemorrhage. 2. Chronic infarcts in the right frontal and right parietal lobe. 4. Atrophy and findings suggestive of mild chronic small vessel ischemic changes. ASSESSMENT AND PLAN: Mr. Sims is an 87-year-old male with a complex past medical history, who presented to the emergency department with complaint of left-sided facial droop and slurred speech starting at approximately 8 p.m. last night. 1. Stroke. Suspect the patient had a CVA with notable left sided facial droop and slurred speech. The patient's NIH score is 5. The patient will be admitted to the hospitalist service on telemetry. He cannot have contrast, therefore, an MRI without contrast will be ordered, a transthoracic echocardiogram, and carotid ultrasound. The patient was given rectal aspirin 300 mg in the emergency department and we will continue him on aspirin 81 mg daily. I spoke with neurologist Dr. Peralta who does recommend starting him on Plavix 75 mg with the first dose tonight. The CT Brain is negative for bleed. Aspiration precautions. Speech therapist jannie, in the meantime continued nectar thickened fluids and purred foods. Fasting lipid profile.Neuro consult. 2. Insulin-dependent type 2 diabetes. Fingerstick blood glucose monitoring a.c. and h.s. Plan to hold Januvia. He is on Lantus 100 units subcu b.i.d. at home. Will cut this in half as he is eating much less than what he will be eating at home. Monitor and adjust as needed.FSBG with lispro sliding scale. 3. Hypertension. Hold antihypertensive home medications including his torsemide due to concern for cerebrovascular accident, keeping his blood pressure slightly hypertensive. Currently in the emergency department, his pressures are in the 130s and 140s. 4. History of chronic urinary retention with indwelling Julio catheter which is changed every 4 weeks. No obvious signs of infection in his urinalysis. 5. Chronic kidney disease appears to be around baseline. 6. Coronary artery disease asymptomatic. Continue aspirin, statin, holding beta- sanjeev at this time due to cerebrovascular accident. Consider restarting in the morning. 7. Leukocytosis, mild, 12.6. No obvious signs of infection. We will continue to monitor.Send blood cultures 8. Atrial fibrillation, chronic. Again, we will hold evening dose of metoprolol due to keeping his blood pressure a little elevated. He should be reevaluated in the morning to prevent rebound beta-sanjeev withdrawal or rapid atrial fibrillation/flutter. 9. History of constipation. Continue MiraLAX. 10. DVT prophylaxis. Heparin subcu. 11. Code status. The patient states he is a full code - this was confirmed by the patient, and son. 12. Hospital status. Observation. TIME SPENT: Approximately 60 minutes were spent on this admission. SERA NEFF, STIVEN [id number]/CPS #: [id number] CHELLY
[2018-08-01] MEDS ORDERED: Dextrose 50% Syringe 50 ML* 25 GM/50 ML SYRINGE IV PUSH PRN ×2 (22:34→22:37)
[2018-08-01] MEDS ORDERED: Insulin LISPRO* 1 UNITS UNIT SUBCUT ONE (23:00)
[2018-08-02 05:47] LABS: ABS Basophils 0.1 10^3/ul (0-0.2); ABS Eosinophils 0.3 10^3/ul (0-0.6); ABS Monocytes 1.1 10^3/ul (0-0.8); ABS Neutrophils 12.8 10^3/ul (1.5-7.7); ABS Nucleated RBC 0 10^3/ul; Eosinophil % 1.9 %; Hematocrit 44 % (42-52); Lymphocyte % 6.7 %; Mean Corpuscular HGB Conc 32 g/dl (31-36); Mean Corpuscular Hemoglobin 27 pg (27-31); Mean Corpuscular Volume 82 fL (80-94); Mean Platelet Volume 8.5 fL (7.4-10.4); Nucleated Red Blood Cells % 0.1; Platelet Count 256 10^3/ul (150-450); Red Cell Distribution Width 17 % (10.5-15); White Blood Count 15.3 10^3/ul (3.5-10.8)
[2018-08-02 06:09] LABS: Calcium 9.5 mg/dL (8.6-10.3); EGFR African American 32.1 (>60); EGFR Non-African American 26.6 (>60); HDL Cholesterol 33.3 mg/dL; Potassium 3.7 mmol/L (3.5-5.0)
[2018-08-02] MEDS: Polyethylene Glycol 3350* 17 GM PACKET PO SCH (07:51)
[2018-08-02] MEDS: Atorvastatin* 80 MG TAB PO SCH (07:51)
[2018-08-02] MEDS: Prenatal Vitamin TAB PO SCH (07:51)
[2018-08-02] MEDS: Insulin GLARGINE(*) 1 UNITS UNIT SUBCUT SCH ×2 (07:52→21:13)
[2018-08-02] MEDS: Ferrous Sulfate TAB* 325 MG PO SCH ×2 (07:52→21:09)
[2018-08-02] MEDS: Pantoprazole TAB * 40 MG TAB PO SCH (07:52)
[2018-08-02] MEDS: Insulin LISPRO* 1 UNITS UNIT SUBCUT SCH ×4 (07:52→21:14)
[2018-08-02] MEDS: Clopidogrel TAB* 75 MG PO SCH (07:52)
[2018-08-02] MEDS: Ascorbic Acid TAB* 500 MG PO SCH (07:52)
[2018-08-02] MEDS: Tamsulosin CAP* 0.4 MG PO SCH (07:52)
[2018-08-02] MEDS: Aspirin 81 mg CHEW TAB* 81 MG TAB.CHEW PO SCH (07:52)
[2018-08-02] MEDS: Umeclidin/Vilant 62.5 MDI 62.5/25 mcg 14 INH ELLIPTA DEVICE INH SCH (07:59)
--- NOTE | 2018-08-02 11:38 | ECHO ---
Patient: PILAR MILLER [facility] Rec#: [id number] : 1930 Date: 08/02/2018 Age: 87y Height: 177.8 cm / 70.0 in Weight: 848.22 kg / 1869.5 lbs Sex: M BSA: 5.4 Room#: 440 Admit Date#: 08/01/2018 Type: Inpatient Referring: Jania Bell Reading: Rei Llamas MD Pharmacy Affairs Assistant: Nell Ramos RDCS CC: Flaco Motley MD Transthoracic Echocardiogram Indication: CVA BP: 116/63 HR: 84 Rhythm: NSR with PACs Findings History: Left sided facial droop, a-fib,COPD,CAD,HTN,DM,GERD,s/p cardiac arrest 2016,CKD. Technical Comments: The study quality is good. Completed at 1120. Left Ventricle: The left ventricular chamber size is normal. Mild concentric left ventricular hypertrophy is observed. Global left ventricular wall motion and contractility are within normal limits. There is normal left ventricular systolic function. The estimated ejection fraction is 55-60%. Normal left ventricular diastolic filling is observed. Left Atrium: The left atrium is moderately dilated. Right Ventricle: The right ventricular cavity size is normal. The right ventricular global systolic function is normal. Right Atrium: The right atrium is mildly dilated. There is no patent foramen ovale visualized. There is no evidence of patent foramen ovale shunting. A patent foramen ovale is not demonstrated with color Doppler and agitated contrast. Aortic Valve: The aortic valve is trileaflet. The aortic valve leaflets are mildly thickened. There is no evidence of aortic regurgitation. There is mild aortic stenosis. The highest aortic valve velocity was obtained with the standard probe from the A5C view. Mitral Valve: There is mitral annular calcification. There is no evidence of mitral regurgitation. Tricuspid Valve: The tricuspid valve leaflets are normal. There is no evidence of tricuspid valve regurgitation. Pulmonic Valve: The pulmonic valve appears normal in structure and function. There is no evidence of pulmonic regurgitation. There is no pulmonic stenosis. Pericardium: The pericardium appears normal. There is no significant pericardial effusion. Aorta: There is no dilatation of the ascending aorta. The aortic arch is not well visualized. There is no dilation of the aortic root.MD re-measurement. Pulmonary Artery: The main pulmonary artery is not well visualized. Venous: The venous system is not well visualized. Contrast: Normal saline was used as contrast for the bubble study. Intravenous contrast was used to help determine presence of intracardiac shunting. Intravenous agitated saline contrast was used to assess intracardiac shunting. Conclusions There is normal left ventricular systolic function. The estimated ejection fraction is 55-60%. Global left ventricular wall motion and contractility are within normal limits. The left ventricular chamber size is normal. Mild concentric left ventricular hypertrophy is observed. The left atrium is moderately dilated. The right atrium is mildly dilated. There is mild aortic stenosis. A patent foramen ovale is not demonstrated with color Doppler nor agitated contrast. Since the prior echocardiogram completed 05/26/18, there is no significant change. Measurements Name Value Normal Range RVIDd (AP) 2D 2.6 cm (0.9 - 2.6) RVDdMajor (2D) 3.5 cm (2.2 - 4.4) RAd ISD 4CH 5.5 cm (3.4 - 4.9) RA (A4C)W 4.5 cm (2.9 - 4.6) IVSd (2D) 1.3 cm (0.6 - 1) LVPWd (2D) 1.1 cm (0.6 - 1) LVIDd (2D) 4.3 cm (3.6 - 5.4) LVIDs (2D) 3.2 cm - LV FS (2D) 26 % (25 - 45) Aortic Annulus 1.9 cm (1.4 - 2.6) Ao root diameter (2D) 3.5 cm (2.1 - 3.5) Ascending Ao 2.8 cm (2.1 - 3.4) LA dimension (AP) 2D 3.9 cm (2.3 - 3.8) LAd ISD 4CH 6.5 cm (2.9 - 5.3) LA ISD 4CH W 4.5 cm (2.5 - 4.5) Name Value Normal Range LA ESV SP 4CH (A/L) 92 ml - LA ESV SP 2CH (A/L) 53 ml - LA ESV BP (A/L) 72 ml - LA ESV BP (A/L) index 13.33 ml/m2 - LA ESV SP 4CH (MOD) 83 ml - LA ESV SP 2CH (MOD) 52 ml - Name Value Normal Range MV E-wave Vmax 1 m/sec - MV deceleration time 130 msec - MV A-wave Vmax 0.6 m/sec - MV E:A ratio 1.78 ratio - LV septal e' Vmax 0.05 m/sec - LV lateral e' Vmax 0.1 m/sec - LV E:e' septal ratio 20 ratio - LV E:e' lateral ratio 10 ratio - Name Value Normal Range AV Vmax 2.1 m/sec - AV VTI 42.1 cm - AV peak gradient 16.92 mmHg - AV mean gradient 8.88 mmHg - LVOT diameter 1.8 cm - LVOT Vmax 1.2 m/sec - LVOT VTI 21.9 cm - LVOT peak gradient 5.54 mmHg - LVOT mean gradient 2.34 mmHg - PERFECTO (continuity Vmax) 1.8 cm2 - PERFECTO (continuity VTI) 1.6 cm2 - Name Value Normal Range PV Vmax 0.8 m/sec - PV peak gradient 2.57 mmHg -
--- NOTE | 2018-08-02 11:38 | PN ---
Subjective Date of Service: 08/02/18 Interval History: Mr. Sims is feeling ok today. He is not exactly sure why he is in the hospital , but reports feeling a "pulling" sensation on the right side of his face yesterday. That has now resolved. He offers no complaints at this point, but reports that he does not want to be in the hospital "forever" and is fearful he may here. He does not remember having any prior strokes. He denies CP, SOB, N/V. Family History: Unchanged from Admission Social History: Unchanged from Admission Past Medical History: Unchanged from Admission Objective Active Medications: Albuterol (Ventolin Hfa Inhaler*) 2 puff INH Q4H PRN SOB/WHEEZING Ascorbic Acid (Vitamin C Tab*) 500 mg PO DAILY [facility] Aspirin (Aspirin 81 Mg Chew Tab*) 81 mg PO DAILY [facility] Atorvastatin Calcium (Lipitor*) 80 mg PO DAILY [facility] Clopidogrel Bisulfate (Plavix Tab*) 75 mg PO DAILY [facility] Dextrose (D50w Syringe 50 Ml*) 12.5 gm IV PUSH .FOR FS < 60 - SS PRN FS < 60 Ferrous Sulfate (Ferrous Sulfate Tab*) 325 mg PO BID [facility] Insulin Glargine (Lantus(*)) 50 units SUBCUT BID [facility] Insulin Human Lispro (Humalog*) 0 units SUBCUT ACHS [facility]; Protocol Levalbuterol HCl (Xopenex 1.25 Mg/0.5 Ml Neb.Le*) 1.25 mg INH TID PRN SOB/ WHEEZING Multivitamins ( Vitamin Tab*) 1 tab PO DAILY [facility] Pantoprazole Sodium (Protonix Tab*) 40 mg PO DAILY [facility] Polyethylene Glycol/Electrolytes (Miralax*) 17 gm PO DAILY [facility] Tamsulosin HCl (Flomax Cap*) 0.4 mg PO DAILY [facility] Umeclidinium/Vilanterol (Anoro 62.5/25 Ellipta Device (Nf)) 1 inh INH DAILY [facility] Vital Signs - 8 hr 08/02/18 07:49 Temperature 97.3 F Pulse Rate 62 Respiratory 18 Rate Blood Pressure 139/64 (mmHg) O2 Sat by Pulse 97 Oximetry Oxygen Devices in Use Now: None Appearance: Elderly male laying in bed in NAD Eyes: No Scleral Icterus Ears/Nose/Mouth/Throat: Mucous Membranes Moist Neck: NL Appearance and Movements; NL JVP, Trachea Midline Respiratory: Symmetrical Chest Expansion and Respiratory Effort, Clear to Auscultation Cardiovascular: NL Sounds; No Murmurs; No JVD, - - Irregular Abdominal: NL Sounds; No Tenderness; No Distention Extremities: No Edema Neurological: - - Oriented to self and place Lines/Tubes/Other Access: Clean, Dry and Intact Julio, Clean, Dry and Intact Peripheral IV Nutrition: Taking PO's Result Diagrams: 08/02/18 05:33 08/02/18 05:33 Assess/Plan/Problems-Billing Assessment: Mr. Sims is an 87 yo M with PMH of CVA in 05/2018, afib, DM2, CAD, HTN; who presented to the ED with c/o a left facial droop and was admitted because of the concern for acute CVA. - Patient Problems (1) CVA (cerebral vascular accident) Code(s): I63.9 - CEREBRAL INFARCTION, UNSPECIFIED Comment: - Minimal left facial droop - Brain CT shows chronic infarcts in right frontal and right parietal lobes, but no acute infarcts - Carotid dopplers less than 50% stenosis - Neurology consult appreciated; recommends dual antiplatelet therapy at this time despite history of microhemorrhages - Echo and MRI brain pending - Continue aspirin, Plavix, atorvastain (2) Atrial fibrillation Code(s): I48.91 - UNSPECIFIED ATRIAL FIBRILLATION Comment: - Rate controlled - Not anticoagulated d/t history od microhemorrhages - Resume metoprolol (3) CAD (coronary artery disease) Code(s): I25.10 - ATHSCL HEART DISEASE OF [place] CORONARY ARTERY W/O ANG PCTRS Comment: - Continue aspirin, atorvastatin (4) Diabetes Code(s): E11.9 - TYPE 2 DIABETES MELLITUS WITHOUT COMPLICATIONS Comment: - Glucose moderately well controlled - A1c in May was 8.4% - Continue Lanus, Lispro SS (5) Hypertension Code(s): I10 - ESSENTIAL (PRIMARY) HYPERTENSION Comment: - Normotensive, SBP 110-130's - Hold amlodipine, hydralazine, torsemide - Continue metoprolol (6) COPD (chronic obstructive pulmonary disease) Code(s): J44.9 - CHRONIC OBSTRUCTIVE PULMONARY DISEASE, UNSPECIFIED Comment: - No signs of acute exacerbation - Continue PRN inhalers and home maintenance inhaler when available (7) CKD (chronic kidney disease) stage 4, GFR 15-29 ml/min Code(s): N18.4 - CHRONIC KIDNEY DISEASE, STAGE 4 (SEVERE) Comment: - Creatinine at baseline (8) History of urinary retention Code(s): Z87.898 - PERSONAL HISTORY OF OTHER SPECIFIED CONDITIONS Comment: - With chronic Julio, changed monthly (9) GERD (gastroesophageal reflux disease) Code(s): K21.9 - GASTRO-ESOPHAGEAL REFLUX DISEASE WITHOUT ESOPHAGITIS Comment : - Continue patoprazole (10) DVT prophylaxis Comment: - Heparin SQ (11) Full code status Code(s): Z78.9 - OTHER SPECIFIED HEALTH STATUS Comment: Status and Disposition: Inpatient. Anticipate d/c home when medically stable and cleared by Neurology. Attending: Jose Pierce
--- NOTE | 2018-08-02 12:03 | CONS ---
CC: Dr. Motley; Dr. James Naylor * CONSULTATION NOTE: DATE OF CONSULT: 08/02/18 LOCATION: The patient is currently in room 440. REASON FOR CONSULTATION: Possible new stroke. HISTORY OF PRESENT ILLNESS: Mr. Sims is an 87-year-old gentleman who has had some dementia and is unable to give me a clear history. He was recently admitted to the hospital back in May, at which point I saw him one time. He was subsequently seen by Dr. Kim. At that time, there was concern for a stroke, but he was admitted initially for some abdominal pain and urinary tract infection. He had a Julio cath that had foul-smelling urine and was treated with antibiotics. Had some acute kidney injury at that time. Also was noted to have some mental status change and there was concern that he might have had a new stroke. Initially, I started him on aspirin and Plavix. He does have a history of atrial fibrillation, but it had been stopped due to some bleeding. Subsequent workup including an MRI, which was limited in nature, did show the possibility of some subacute frontal strokes with possible microscopic hemorrhage. The stroke were noted to be on the right side. Due to that, he was taken off the Plavix and continued on aspirin. It was felt due to fall risks and bleeding, he was not a good candidate for full strength anticoagulation and the family was not interested in pursuing that at this time. Please see the prior discharge summary dated 05/28/18 for full details. At that time, the patient did have an MRI of the brain from 05/25/18, which showed loss of signal within the lumen of the junction in the right M1 and M2 segments of the right middle cerebral artery. Unclear whether this represents a thrombus in the area of focal narrowing due to atherosclerosis. There is also focal narrowing of the distal M2 branches. However, similar changes are noted on the left side and may represent artifact, areas of ischemia involving portions of the right frontal and parietal lobes, which may be subacute in timing. Cortex shows increased signal with a subcortical area of low density. This may represent laminar necrosis, ischemic white matter edema. Carotid Doppler study from 05/26/18 showed less than 50% stenosis of the internal carotid arteries bilaterally, and brain MRI from 05/27/18 showed an area of possible restricted diffusion in the precentral gyrus in the right frontal lobe. Yesterday, he was brought to the hospital with what he notes as left- sided facial droop. I should say that he is more awake and alert on my evaluation today, but he does have some underlying dementia. He notes that he got "low" speaking about his blood sugars last night and felt very weak in his legs. Apparently, last night, he had some slurred speech, but initially his thought that he might be "joking around and making funny faces". He noted a sinus headache and "swollen tongue" that he reports is improved. When he woke up yesterday morning, he had a left-sided facial droop and slurred speech, which had improved some in the ER. While he initially reported some weakness in his lower extremities, he states that had resolved. He also denied any problems with swallowing, but apparently did not do well with thin liquids at bedside swallowing eval, but subsequent evaluation showed good swallowing with thickened liquids and pureed foods. There was no reported recent illnesses, fevers, chills, nausea, vomiting, diarrhea, or constipation. No foul- smelling urine and the patient does have a chronic indwelling catheter. He denies any other focal neurologic findings other than the speech and facial droop. This morning, he notes that the facial droop is improved and he is wanting to go home. PAST MEDICAL HISTORY: His past medical history is complicated, includes multiple stroke risk factors including coronary artery disease, hypertension, type 2 diabetes, GERD, atrial fibrillation, COPD, history of cardiac arrest in 2015. PAST SURGICAL HISTORY: Includes appendectomy and cataracts. ALLERGIES: No known drug allergies. MEDICATIONS: His current medications include, 1. Albuterol inhaler. 2. Vitamin C tablet. 3. Aspirin 81 mg daily. 4. Lipitor 80 mg daily. 5. Plavix 75 mg p.o. daily. 6. Ferrous sulfate 325 mg p.o. b.i.d. 7. Insulin. 8. Multivitamin. 9. Protonix. 10. MiraLAX. 11. Tamsulosin. 12. Anoro. He did receive aspirin yesterday as well as a Plavix yesterday on my direction. FAMILY HISTORY: Includes lung cancer in his mother, coronary artery disease in his father. SOCIAL HISTORY: Quit smoking in 1994, but was a very heavy smoker for many years, up to 5 packs a day. No significant alcohol use. Lives with his . 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 REVIEW OF SYSTEMS: A 14-organ systems as noted above; otherwise negative. PHYSICAL EXAMINATION: Vital Signs: Temp of 97.3, pulse is 62, respiratory rate of 18, blood pressure has been in the 110s-130s/60s, O2 sats are 97% to 100 %. In general, he is a well-nourished, well-developed gentleman, sitting in his hospital bed. He is pleasant, well dressed, well groomed. HEENT: He is normocephalic, atraumatic. Sclerae are anicteric. Mucous membranes are moist. Oropharynx is clear. Nares are patent. Neck is supple. No thyromegaly or carotid bruits are appreciated. Chest is clear to auscultation bilaterally. Cardiovascular: Irregularly irregular. No murmurs appreciated. Abdomen is nontender. Extremities: There is no significant clubbing, cyanosis, or edema. Skin is warm and dry. Neurologic Exam: He is awake, he is alert, he is oriented to person and place. Speech is fluent. There is no significant dysarthria. Repetition is intact. Recall is somewhat impaired, but he does have good recall of recent events in the last 24 hours. Mood is dysthymic. Affect, mood congruent. Cranial Nerves: Pupils are equal, round and reactive to light and accommodation. Extraocular muscles are intact. Visual harris appear full. No nystagmus or diplopia noted. Face, sensation is intact to light touch. He does have a very subtle left lower facial droop, apparently this is improved. Palate raises symmetrically. Tongue is midline. Sternocleidomastoid is 5/5 bilaterally. Motor Exam: He spontaneously moves all extremities antigravity. He has got 5/5 strength throughout. There is no significant drift appreciated in the upper and lower extremities. Finger-to- nose and rapid alternating movements were significant for a mild intention tremor bilaterally. No cogwheeling. DTRs are trace throughout with downgoing Babinski's. Sensation, he states is briskly intact to light touch and pinprick throughout. No focal deficits. Gait was not tested at this time. DIAGNOSTIC STUDIES/LAB DATA: Lab work includes a white count of 15.3 with 12.8 absolute neutrophils, 1.1 absolute monocytes. INR 0.92. PTT 32.8. Chemistry: Blood glucose 189, BUN 35, creatinine 2.33. Triglycerides 89, cholesterol 129, LDL of 78, HDL 33.3, calcium 9.5. Urine: Trace leukocyte esterase, 1+ white blood cells, 1+ bacteria. Imaging: He had a brain CT done yesterday, showed no evidence for acute changes , chronic infarcts in the right frontal and right parietal lobes with atrophy and small vessel disease. Films reviewed. I agree with findings. ASSESSMENT AND PLAN: Mr. Sims is an 87-year-old gentleman with a history of atrial fibrillation, previously on anticoagulation, but taken off sometime ago due to epistaxis. Also, he has a fall risk, was seen in the hospital early May with urinary tract infection, possible new strokes with some possible hemorrhagic elements. Initially put on aspirin and Plavix, but this was reduced to aspirin only on discharge. He was not felt to be a good candidate for full strength anticoagulation despite the atrial fibrillation. He was doing well, in his usual state of health, which on the night of the developed acute onset of facial droop and some slurred speech, but did not come to the hospital until the following day. Yesterday, was found to have some mild facial droop on the left, some continued slurred speech. Apparently, initially failed the bedside swallowing, but then passed and has been swallowing without difficulties. Currently, he is feeling better. He denies any new issues or concerns. He wants to leave. I had convinced him to stay and at this point, it is difficult to say whether he has had some masking of symptoms or he has new strokes. The plan is to repeat an MRI of the brain. If he can tolerate it, to look for any evidence of new stroke, which could change attendant. We will order another carotid ultrasound of his neck to look for any dissection or other acute changes. He is to have an echocardiogram as well given the new findings. I decided to put him back on the Plavix given the fact that he has had 2 events now in several months. I do not think he is a good candidate for full strength anticoagulation despite the AFib given his prior bleeding and his risk of falls. At this point, I would continue his Lipitor, continue his tight blood pressure control, watch his blood pressure and allow it to ride in a medium range, treat for systolic blood pressure greater than 200 , diastolic greater than 105. Ordered physical therapy. Apparently, he has been swallowing fine at this point. No difficulties. The patient is anxious to leave, but until then we need to do a more workup. Should the MRI show evidence of new stroke or hemorrhage, we may need to re-consider his anticoagulation, but for now given his risk factors and multiple events, I do think aspirin and Plavix are appropriate. We will continue to follow him closely and make further recommendations as necessary. Thank you for the opportunity to participate in the care of this very interesting patient. [id number]/[facility] #: [id number] CHELLY
[2018-08-02] MEDS: Heparin VIAL(*) 5000 UNITS/ML VIAL (FIVE THOUSAND) SUBCUT SCH ×2 (13:08→21:13)
[2018-08-02] MEDS: Metoprolol Succinate XL TAB* 25 MG PO SCH (21:09)
[2018-08-03] MEDS: Heparin VIAL(*) 5000 UNITS/ML VIAL (FIVE THOUSAND) SUBCUT SCH ×2 (05:17→17:23)
[2018-08-03 05:46] LABS: ABS Basophils 0.1 10^3/ul (0-0.2); ABS Eosinophils 0.2 10^3/ul (0-0.6); ABS Lymphocytes 1.4 10^3/ul (1.0-4.8); ABS Monocytes 1.1 10^3/ul (0-0.8); ABS Neutrophils 11.6 10^3/ul (1.5-7.7); ABS Nucleated RBC 0 10^3/ul; Eosinophil % 1.3 %; Hematocrit 44 % (42-52); Lymphocyte % 9.7 %; Mean Corpuscular HGB Conc 32 g/dl (31-36); Mean Corpuscular Hemoglobin 26 pg (27-31); Mean Corpuscular Volume 83 fL (80-94); Mean Platelet Volume 8.6 fL (7.4-10.4); Nucleated Red Blood Cells % 0; Platelet Count 239 10^3/ul (150-450); Red Cell Distribution Width 16 % (10.5-15); White Blood Count 14.4 10^3/ul (3.5-10.8)
[2018-08-03 05:57] LABS: Calcium 9.9 mg/dL (8.6-10.3); Potassium 3.4 mmol/L (3.5-5.0)
[2018-08-03 06:02] LABS: BUN/Creatinine Ratio 16.1 (8-20); EGFR Non-African American 29.8 (>60)
[2018-08-03] MEDS: Umeclidin/Vilant 62.5 MDI 62.5/25 mcg 14 INH ELLIPTA DEVICE INH SCH (07:44)
[2018-08-03] MEDS: Metoprolol Succinate XL TAB* 25 MG PO SCH (07:47)
[2018-08-03] MEDS: Polyethylene Glycol 3350* 17 GM PACKET PO SCH (07:47)
[2018-08-03] MEDS: Prenatal Vitamin TAB PO SCH (07:48)
[2018-08-03] MEDS: Tamsulosin CAP* 0.4 MG PO SCH (07:48)
[2018-08-03] MEDS: Ferrous Sulfate TAB* 325 MG PO SCH (07:49)
[2018-08-03] MEDS: Clopidogrel TAB* 75 MG PO SCH (07:49)
[2018-08-03] MEDS: Pantoprazole TAB * 40 MG TAB PO SCH (07:52)
[2018-08-03] MEDS: Aspirin 81 mg CHEW TAB* 81 MG TAB.CHEW PO SCH (07:52)
[2018-08-03] MEDS: Ascorbic Acid TAB* 500 MG PO SCH (07:52)
[2018-08-03] MEDS: Insulin LISPRO* 1 UNITS UNIT SUBCUT SCH ×2 (08:03→12:10)
--- NOTE | 2018-08-03 08:15 | PN ---
Subjective Date of Service: 08/03/18 Length of Stay: 2 Days Interval History: The patient denies any current issues or complaints. States "I may have been low again last night." Denies any new focal deficits, vision changes, problems swallowing or speaking. No chest pain, shortness of air. Remains confused but pleasantly so. Denies any headache. He is wanting to "get out of here" but understands the need to stay for workup. Echo: Normal left Vent systolic fxn EF: 55-60% Mild concentric left ventricular chamber size Left atrium mildly dilated Right atrium mildly dilataed Mild aortic stenosis PFO not demostrated with agitated contrast No significant change from 12.014.18 Family History: Unchanged from Admission Social History: Unchanged from Admission Past Medical History: Unchanged from Admission Objective Active Medications: Albuterol (Ventolin Hfa Inhaler*) 2 puff INH Q4H PRN PRN Reason: SOB/WHEEZING Ascorbic Acid (Vitamin C Tab*) 500 mg PO DAILY [facility] Last Admin: 08/03/18 07:52 Dose: 500 mg Aspirin (Aspirin 81 Mg Chew Tab*) 81 mg PO DAILY [facility] Last Admin: 08/03/18 07:52 Dose: 81 mg Atorvastatin Calcium (Lipitor*) 80 mg PO DAILY [facility] Last Admin: 08/02/18 07:51 Dose: 80 mg Clopidogrel Bisulfate (Plavix Tab*) 75 mg PO DAILY [facility] Last Admin: 08/03/18 07:49 Dose: 75 mg Dextrose (D50w Syringe 50 Ml*) 12.5 gm IV PUSH .FOR FS < 60 - SS PRN PRN Reason: FS < 60 Ferrous Sulfate (Ferrous Sulfate Tab*) 325 mg PO BID [facility] Last Admin: 08/03/18 07:49 Dose: 325 mg Heparin Sodium (Porcine) (Heparin Vial(*)) 5,000 units SUBCUT Q8HR [facility] Last Admin: 08/03/18 05:17 Dose: 5,000 units Insulin Glargine (Lantus(*)) 50 units SUBCUT BID [facility] Last Admin: 08/02/18 21:13 Dose: 50 unit Insulin Human Lispro (Humalog*) 0 units SUBCUT ACHS [facility]; Protocol Last Admin: 08/03/18 08:03 Dose: Not Given Levalbuterol HCl (Xopenex 1.25 Mg/0.5 Ml Neb.Le*) 1.25 mg INH TID PRN PRN Reason: SOB/WHEEZING Metoprolol Succinate (Toprol Xl Tab*) 12.5 mg PO BID [facility] Last Admin: 08/03/18 07:47 Dose: 12.5 mg Multivitamins ( Vitamin Tab*) 1 tab PO DAILY [facility] Last Admin: 08/03/18 07:48 Dose: 1 tab Pantoprazole Sodium (Protonix Tab*) 40 mg PO DAILY [facility] Last Admin: 08/03/18 07:52 Dose: 40 mg Polyethylene Glycol/Electrolytes (Miralax*) 17 gm PO DAILY [facility] Last Admin: 08/03/18 07:47 Dose: 17 gm Tamsulosin HCl (Flomax Cap*) 0.4 mg PO DAILY [facility] Last Admin: 08/03/18 07:48 Dose: 0.4 mg Umeclidinium/Vilanterol (Anoro 62.5/25 Ellipta Device (Nf)) 1 inh INH DAILY [facility] Last Admin: 08/03/18 07:44 Dose: Not Given Vital Signs 08/02/18 08/02/18 08/02/18 10:50 15:24 19:30 Temperature 98.1 F 97.1 F 97.9 F Pulse Rate 61 62 62 Respiratory 16 16 16 Rate Blood Pressure 133/66 143/76 128/61 (mmHg) O2 Sat by Pulse 94 100 98 Oximetry 08/02/18 08/02/18 08/03/18 20:00 23:54 03:14 Temperature 97.7 F 98.1 F Pulse Rate 63 64 Respiratory 20 20 20 Rate Blood Pressure 140/64 125/59 (mmHg) O2 Sat by Pulse 98 97 Oximetry Intake and Output Last 24 Hours 08/01/18 08/02/18 08/03/18 08/04/18 06:59 06:59 06:59 06:59 Intake Total 0 840 Output Total 700 950 Balance -700 -110 Weight 164 lb 11.2 oz Intake: Oral 0 840 Output: Wolfe 700 950 Other: # Bowel Movements 0 # Voids 0 Oxygen Devices in Use Now: None Neurology Exam: General: Awake, alert, sitting up in bed, about to eat breakfast HEENT: Normocephalic/atraumatic, sclera anicteric, mucous membranes moist Neck: Supple Chest: Clear to auscultation bilaterally Cardiovascular: Irreg irreg Abdomen: Soft, nontender/nondistended Extremities: No clubbing, cyanosis, or edema Neurological Findings: Oriented to person, "hospital" Unclear of location otherwis, date Speech: fluent without dysrhythmia, repetition intact Cranial Nerve: PEERL, EOM intact, VFF, no nystagmus appreciated, mild left lower facial droop, hearing grossly intact, palate elevates symmetrically, tongue midline Motor: 5/5 throughout, proximal and distal extremities x4 tone/bulk normal Sensation: grossly intact to LT/PP bilaterally upper and lower extremities Deep Tendon Reflex: 1+ symmetric in the upper/lower extremities, Babinski - equivocal Finger to nose tremor, bilaterally, no resting tremor Result Diagrams: 08/03/18 05:35 08/03/18 05:35 Microbiology and Other Data: Microbiology 08/01/18 15:00 Urine Culture - Final Urine No Growth (<1,000 CFU/mL) Assessment/Plan Assessment: Mr. Sims is an 87 y/o male with admission in 05/2018 for CVA, history of a.fib but contraindicated for full strength anticoagulation due to fall risk and previous bleed. Possible microhemmorhages on initial imaging in May, sent home ASA only. Patient returned with acute onset left lower facial droop and dysarthria, ? dysphagia, no new stroke on CT but evidence of chronic strokes. Has multiple risk factors including A.fib, DM, CAD, HTN 1. Possible new stroke vs. unmasking. Facial droop appears slightly improved. Denies any trouble swallowing, no dysarthria. No significant left sided weakness --Repeat MRI pending. If there is evidence of new stroke, I will likely send him home on ASA/Plavix. I do not think he is good candidate at this point for full strength anticoagulation given risk of falls and previous bleeding. If no evidence of new stroke, will discuss need for dual vs. mono antiplatelet in outpatient setting. --Echo shows no change --Previous workup revealed non-critical carotid stenosis. Will need to follow outpatient --DM control --HTN control --Continue Statin --PT/OT/ST 2. CKD: indwelling wolfe. ? infection. 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 This is not likely the cause of any possible unmasking 3. COPD: Stable 4. Dementia: Appears baseline. Recommend further evaluation as an outpatient once at baseline. 5. He will need outpatient follow up with neurology upon discharge
[2018-08-03] MEDS: Insulin GLARGINE(*) 1 UNITS UNIT SUBCUT SCH (08:50)
[2018-08-03] MEDS: Atorvastatin* 80 MG TAB PO SCH (08:50)
[2018-08-03 13:39] VITALS: BP 137/66
--- NOTE | 2018-08-03 20:51 | DS ---
CC: Dr. Mojica; Dr. Tomas; Dr. Osmany Peralta, Neurology; Dr. Motley * DISCHARGE SUMMARY: DATE OF ADMISSION: 08/02/18 DATE OF DISCHARGE: 08/03/18 PRIMARY CARE PROVIDER: Dr. Motley. ATTENDING PHYSICIAN: Dr. Alden Tomas * (dictated by Sky Hui NP). MY ATTENDING FOR TODAY: Dr. Carol Mojica. HOSPITAL COURSE: Please refer to admitting H and P by Deneen Llanes, however, in short, this very pleasant 87-year-old male patient with history of some mild dementia, coronary artery disease, diabetes, hypertension, COPD, CKD, and urinary retention, presented to the emergency department with a complaint of left-sided facial droop. There was a concern for acute CVA at that time. He was consulted with Dr. Peralta. The patient had some left facial droop, was admitted for rule out CVA. He was seen by Neurology and transthoracic echocardiogram and CT of the brain were ordered. His echo did not demonstrate a PFO. The CT showed some old infarcts, which were known issues. There was no evidence for acute gross infarct, mass effect, or hemorrhage. There were chronic infarcts in the right frontal and right parietal lobes, atrophy, and findings suggestive of mild chronic small vessel ischemic changes. Neurology did recommend an MRI of the brain, which the patient had today. His MRI did show a small foci of restricted diffusion within the right frontal lobe consistent with a subacute nonhemorrhagic infarct. Some multifocal encephalomalacia consistent with multiple remote infarcts, chronic small vessel ischemic changes, small bilateral mastoid effusions. The patient does have a history significant for micro bleeds in the past, which was why he was not anticoagulated given his history of atrial fibrillation. However, after examining his imaging and given symptoms that he presented with, Neurology felt treatment with dual antiplatelet therapy with aspirin and Plavix would be warranted with outpatient followup with Neurology. The patient was functioning at his baseline. On 08/03/18, he did have speech language pathology for evaluation. He does not appear to be aspirating and has been stable over the last 24 hours. The patient will be discharged to home and this was discussed with the patient's family at bedside. DISCHARGE DIAGNOSES: 1. Cerebrovascular accident with left facial droop, now resolved. 2. History of atrial fibrillation, rate controlled, not on anticoagulation. 3. History of coronary artery disease, on aspirin and statin. 4. History of diabetes, moderately well controlled. 5. History of hypertension, well controlled. 6. History of chronic obstructive pulmonary disease, not in exacerbation. 7. History of chronic kidney disease, currently at baseline. 8. History of urinary retention with chronic Julio, changed monthly. 9. History of gastroesophageal reflux disease, on proton pump inhibitor. MEDICATIONS FOR DISCHARGE: Include: 1. Aspirin 81 mg daily. 2. Lantus 100 units subcu b.i.d. 3. Ferrous sulfate 325 mg p.o. b.i.d. 4. Desloratadine 5 mg p.o. q.24 hours as needed. 5. Hydralazine 50 mg p.o. t.i.d. 6. Hydrocortisone topical q.24 hours as needed. 7. Amlodipine 10 mg p.o. daily. 8. Vitamin B12 of 500 mcg p.o. daily. 9. Multivitamin 1 tablet daily. 10. Vitamin C 500 mg p.o. daily. 11. Ellipta one inhalation daily. 12. Torsemide 10 mg p.o. daily. 13. Metoprolol succinate XL 12.5 mg p.o. b.i.d. 14. Albuterol inhaler 2 puffs q.4 hours as needed. 15. Flomax 0.4 mg daily. 16. Crestor 40 mg p.o. daily. 17. MiraLax 17 g p.o. daily. 18. Protonix 40 mg p.o. daily. 19. Nitro 0.4 mg sublingual q.5 minutes as needed. 20. Januvia 100 mg p.o. daily. 21. Levalbuterol nebulizers, inhale 3 times a day as needed. New medications: Plavix 75 mg p.o. daily. REVIEW OF SYSTEMS: On the day of discharge, the patient denies any fever, fatigue or chills. No chest pain, no shortness of breath. No dizziness. No weakness above his baseline. No arthralgias or myalgias. No further constitutional complaints. PHYSICAL EXAMINATION: The patient is awake and alert, in no acute distress. Vital signs: Blood pressure 137/66, heart rate 63, respiratory rate 18, and O2 saturation 96% with temperature of 97.6. HEENT: The patient is atraumatic, normocephalic. PERRLA with nonicteric sclerae. Extraocular movements are intact. Oral mucosa is moist. Tongue is midline. Neck is supple, nontender. No JVD noticed. No carotid bruit auscultated. Cardiovascular: S1, S2 present. No murmurs, gallops, or rubs noted. Rate is regular, rhythm is irregular. Lungs: Clear bilaterally to auscultation with no wheezing, rhonchi or rales. Abdomen: Soft, nontender, nondistended. Positive bowel sounds in all 4 quadrants. : There is a Julio catheter draining clear yellow urine. Musculoskeletal: There is no clubbing, no cyanosis, and no edema. 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 Otherwise, sensory is intact. Neurologic: He is confused at baseline secondary to dementia; however, he is appropriate and able to make his needs known. Psychiatric: He is cooperative and appropriate. LABORATORY DATA: WBCs 14.4, RBCs 5.30, hemoglobin 14, hematocrit 44, platelets 239. Sodium 139, potassium 3.4 treated, chloride 101, CO2 of 29. BUN 34, creatinine 2.11. GFR is 29.8. Glucose is 64, range 64 to 144. Calcium 9.9. IMAGING DATA: Transthoracic echocardiogram dated 08/01/18, again shows no PFO. Estimated EF is 55% to 60%. Global left ventricular wall motion and contractility are within normal limits. Left ventricular chamber size is normal. There is mild concentric left ventricular hypertrophy. Left atrium is mildly dilated and the right atrium is also mildly dilated. There is mild aortic stenosis. No PFO. MRI of the brain as noted above. DISPOSITION: The patient will be discharged to home in the care of family. FOLLOWUP: The patient is instructed to follow up with his primary care provider , Dr. Motley in the next 1 to 2 weeks. He is also instructed to follow up with Dr. Peralta of Neurology also in the next 2 to 4 weeks. DIET: Soft solids as tolerated, thin liquids okay. ACTIVITY: Progress as tolerated. TIME SPENT: Approximately 60 minutes interfacing with patient and other providers involved in this patient's care. SKY HUI, LICENSED PSYCHOLOGIST MANAGER [id number] #: [id number] [facility]
== END 2018-08-03 15:42 | disposition home or self-care (01) | DRG 66 ==
LOC: ED 13:49 → MEDTELE 16:59 → OBSVTOIN 08-02 14:24
PROVIDERS: ADMIT Internal Medicine; ATTEND Internal Medicine
DX: I63.9 Cerebral infarction, unspecified (principal); R29.810 Facial weakness; F03.90 Unspecified dementia, unspecified severity, without behavioral disturbance, psychotic disturbance, mood disturbance, and anxiety; R47.81 Slurred speech; I13.10 Hypertensive heart and chronic kidney disease without heart failure, with stage 1 through stage 4 chronic kidney disease, or unspecified chronic kidney disease; N18.9 Chronic kidney disease, unspecified; I48.2 Chronic atrial fibrillation; J44.9 Chronic obstructive pulmonary disease, unspecified; E11.22 Type 2 diabetes mellitus with diabetic chronic kidney disease; K21.9 Gastro-esophageal reflux disease without esophagitis; R33.8 Other retention of urine; I25.10 Atherosclerotic heart disease of native coronary artery without angina pectoris; D72.829 Elevated white blood cell count, unspecified; K59.00 Constipation, unspecified; I25.2 Old myocardial infarction; Z79.82 Long term (current) use of aspirin; Z79.4 Long term (current) use of insulin; Z79.51 Long term (current) use of inhaled steroids; Z79.899 Other long term (current) drug therapy; Z80.1 Family history of malignant neoplasm of trachea, bronchus and lung; Z82.49 Family history of ischemic heart disease and other diseases of the circulatory system; Z84.89 Family history of other specified conditions; Z81.2 Family history of tobacco abuse and dependence; Z87.891 Personal history of nicotine dependence
CPT/HCPCS: 36415; 70450; 70551; 80048; 80053; 80061; 81003; 81015; 83605; 84484; 85025; 85610; 85730; 86850; 86900; 86901; 87086; 93005; 93306; 99284; A9270-GY; G0378; G8978-GP-CI; G8979-GP-CI; G8980-GP-CI; G8987-GO-CI; G8988-GO-CI; G8989-GO-CI; J1644